=== PATIENT | female | born 1985 | race Caucasian/White ===

== ENCOUNTER 2016-11-19 07:15 | Inpatient (IN) | payer MEDICARE, MEDICAID ==
[2016-11-19] MEDS ORDERED: Gabapentin 300 MG Cap PO ONE (08:00)
[2016-11-19] MEDS ORDERED: Scopolamine 1.5 MG Transdermal Patch TOP SCH (08:00)
[2016-11-19] MEDS ORDERED: Celecoxib 100 MG Cap PO ONE (08:00)
[2016-11-19] MEDS ORDERED: Dextrose 5%-Lactated Ringers 1,000 ML IV SCH (08:00)
[2016-11-19] MEDS ORDERED: cefOXitin 2 GM Vial ONE (08:17)
[2016-11-19] MEDS ORDERED: Propofol 200 MG/20 ML SDV ONE (08:25)
[2016-11-19] MEDS ORDERED: Neostigmine Methylsulfate 1 MG/ML 5 ML Syringe ONE (08:25)
[2016-11-19] MEDS ORDERED: Lactated Ringers 1,000 ML ONE (08:25)
[2016-11-19] MEDS ORDERED: Ondansetron 4 MG/2 ML SDV ONE (08:25)
[2016-11-19] MEDS ORDERED: fentaNYL 250 MCG/5 ML SDV ONE (08:25)
[2016-11-19] MEDS ORDERED: Scopolamine 1.5 MG Transdermal Patch ONE (08:25)
[2016-11-19] MEDS ORDERED: Rocuronium 50 MG/5 ML Vial ONE (08:25)
[2016-11-19] MEDS ORDERED: Succinylcholine/Normal Saline 200 MG/10 ML Syringe ONE (08:25)
[2016-11-19] MEDS ORDERED: Dexamethasone 4 MG/ML SDV ONE (08:25)
[2016-11-19] MEDS ORDERED: HYDROmorphone/Normal Saline 15 MG/30 ML PCA IV PRN (08:53)
[2016-11-19] MEDS ORDERED: Naloxone 0.4 MG/ML SDV IVPUSH PRN (08:53)
[2016-11-19] MEDS ORDERED: Naloxone 0.4 MG/ML SDV IV PRN (08:57)
[2016-11-19] MEDS ORDERED: Lidocaine 2% 100 MG/5 ML Syringe IVPUSH ONE (10:00)
[2016-11-19] MEDS ORDERED: Ropivacaine 60 ML, Dexamethasone 8 MG, EPINEPHrine 0.4 MG, Sodium Chloride 0.9% 17.6 ML INJECT SCH ×4 (10:00)
[2016-11-19] MEDS ORDERED: Ketamine 500 MG/5 ML MDV IV SCH (10:00)
[2016-11-19] MEDS: cefOXitin 2 GM in Sodium Chloride 0.9% 50 ML IV ONE ×2 (12:26→15:38)
--- NOTE | 2016-11-19 13:29 | US ---
Guide Intraoperative HISTORY: TAP block COMPARISON: None FINDINGS: Some guidance was utilized for TAP unremarkable block.
[2016-11-19] MEDS: Lidocaine 0.4%/D5W 2 GM/500 ML BAG IV SCH ×2 (15:38→16:31)
[2016-11-19] MEDS ORDERED: Labetalol 20 MG/4 ML Syringe IVPUSH PRN (15:51)
[2016-11-19] MEDS ORDERED: SCOPOLAMINE PATCH ASK TOP SCH (15:51)
[2016-11-19] MEDS ORDERED: hydrOXYzine HCl 50 MG/ML SDV IM PRN (15:51)
[2016-11-19] MEDS: MVI, Adult with Vitamin K 10 ML, Thiamine 200 MG, Chromium/Copper/Mang/Selen/Zn 1 ML in... IV SCH ×4 (16:30)
[2016-11-19] MEDS: Heparin Sodium 5,000 Units/ML Vial SUBCUT SCH (18:00)
[2016-11-19] MEDS: Pantoprazole 40 MG Vial IVPUSH SCH (18:01)
[2016-11-19] MEDS: cefOXitin 2 GM in Sodium Chloride 0.9% 50 ML IV SCH (20:14)
[2016-11-19] MEDS: Gabapentin 250 MG/5 ML Solution ML 470 ML Bottle PO SCH (20:14)
[2016-11-19] MEDS: Ondansetron 4 MG/2 ML SDV IVPUSH PRN (22:13)
[2016-11-19] MEDS: Dextrose 5%-Lactated Ringers 1,000 ML IV SCH (22:14)
[2016-11-20] MEDS: cefOXitin 2 GM in Sodium Chloride 0.9% 50 ML IV SCH ×4 (02:21→21:17)
[2016-11-20] MEDS ORDERED: Iohexol 647 MG/ML 50 ML SDV PO SCH (03:15)
[2016-11-20] MEDS: Lidocaine 0.4%/D5W 2 GM/500 ML BAG IV SCH ×2 (03:26→06:01)
[2016-11-20] MEDS: Ondansetron 4 MG/2 ML SDV IVPUSH PRN ×2 (04:09→10:29)
[2016-11-20] MEDS: Heparin Sodium 5,000 Units/ML Vial SUBCUT SCH ×2 (06:01→17:02)
[2016-11-20] MEDS: Gabapentin 250 MG/5 ML Solution ML 470 ML Bottle PO SCH ×3 (09:21→21:22)
[2016-11-20] MEDS: Celecoxib 100 MG Cap PO SCH (09:22)
[2016-11-20] MEDS: SCOPOLAMINE PATCH CHECK TOP SCH (09:22)
[2016-11-20] MEDS: Pantoprazole 40 MG Vial IVPUSH SCH (17:02)
[2016-11-20] MEDS: MVI, Adult with Vitamin K 10 ML, Thiamine 200 MG, Chromium/Copper/Mang/Selen/Zn 1 ML in... IV SCH ×4 (17:03)
[2016-11-21] MEDS: cefOXitin 2 GM in Sodium Chloride 0.9% 50 ML IV SCH (01:42)
[2016-11-21] MEDS: Dextrose 5%-Lactated Ringers 1,000 ML IV SCH (04:59)
[2016-11-21] MEDS: Heparin Sodium 5,000 Units/ML Vial SUBCUT SCH ×2 (05:01→18:37)
[2016-11-21] MEDS ORDERED: Sodium Chloride 0.9% 10 ML Syringe IV PRN (07:35)
[2016-11-21] MEDS ORDERED: Acetaminophen 160 MG Tab,Disintegrating PO PRN (07:35)
[2016-11-21] MEDS ORDERED: Acetaminophen Soln 650 MG/20.3 ML UD Cup PO PRN (07:35)
[2016-11-21] MEDS: HYDROmorphone 2 MG Tab PO PRN ×3 (08:06→20:37)
[2016-11-21] MEDS: Gabapentin 250 MG/5 ML Solution ML 470 ML Bottle PO SCH ×3 (08:10→20:37)
[2016-11-21] MEDS: Celecoxib 100 MG Cap PO SCH (08:10)
[2016-11-21] MEDS: SCOPOLAMINE PATCH CHECK TOP SCH (08:18)
[2016-11-21] MEDS ORDERED: Cyanocobalamin (Vitamin B12) 1,000 MCG/ML SDV IM ONE (09:00)
--- NOTE | 2016-11-21 21:09 | PN ---
DATE OF SERVICE: 11/21/2016 The patient has been afebrile with stable vital signs. Oral intake is around a liter and we will switch over to oral pain medication today. may shower. She may be ready for discharge home tomorrow. Sammy Brown MD /[id number]
[2016-11-22] MEDS: Heparin Sodium 5,000 Units/ML Vial SUBCUT SCH (05:25)
[2016-11-22] MEDS: HYDROmorphone 2 MG Tab PO PRN ×2 (05:27→10:24)
[2016-11-22 07:16] VITALS: BP 122/62
[2016-11-22] MEDS: Celecoxib 100 MG Cap PO SCH (10:24)
[2016-11-22] MEDS: Gabapentin 250 MG/5 ML Solution ML 470 ML Bottle PO SCH (10:24)
--- NOTE | 2016-11-22 11:02 | PN ---
DATE OF SERVICE: 11/20/2016 The patient is postop day #1 from a laparoscopic Raul-en-Y gastric bypass. Postoperatively, no major problems were noted. Her upper GI x-ray looked good, and we will begin a step-1 diet today. We will restart her Wellbutrin and otherwise start a step-1 diet. The lidocaine infusion is scheduled to go off at 2 p.m. We will leave the [employer] going for today to get some idea how much narcotics this fast track regimen is likely going to need. Sammy Brown MD /[id number]
--- NOTE | 2016-11-22 11:36 | CR ---
Limited upper GI The patient is status post Raul-en-Y gastric bypass. There are left upper quadrant drains in place. There is no extravasation of contrast. The gastric pouch empties readily into a nondilated Raul limb . No complications are evident. Impression: 1. Status post Raul-en-Y gastric bypass without evidence for complication.
[2016-11-22] MEDS ORDERED: Ondansetron 4 MG Tab.DIS PO ONE (11:45)
[2016-11-22] MEDS ORDERED: Magnesium Hydroxide 400 MG/5 ML Susp 30 ML Cup PO ONE (12:22)
--- NOTE | 2016-11-23 02:36 | DISCH ---
ADMISSION DIAGNOSES: Morbid obesity, anxiety, asthma, depression, fatigue, GERD, and heavy menstrual periods. DISCHARGE DIAGNOSES: Laparoscopic Raul-en-Y gastric bypass surgery, liver biopsy, repair of diaphragmatic hernia, and excision of mediastinal lipoma for morbid obesity, hepatomegaly, diaphragmatic hernia, and mediastinal lipoma. DATE OF SURGERY: 11/19/2016. HISTORY: Chantelle Bennett is a 31-year-old female with longstanding history of morbid obesity and increasingly comorbidities. After preoperative evaluation and discussion of possible risks and possible complications, she wished to proceed with surgical procedure. HOSPITAL COURSE: Chantelle had her surgery on 11/19/2016. She had no operative complications. On postop day #1, her upper GI was normal and she was started on a step 1 gastric bypass diet. On postop day #2, she was started on step 2 gastric bypass diet with no cereal. On postop day #3, she was able to be discharged to home. She received dietary instruction. She had a B12 1000 mcg IM injection. Her activity was good. Her oral intake was adequate. Pain was controlled and vital signs were stable. PHYSICAL EXAMINATION: GENERAL: Chantelle Bennett is a 31-year-old female. Height is 5 feet 5.5 inches, weight is 307 pounds 12.8 ounces. VITAL SIGNS: TPR is 99.5, 79, 16, blood pressure 122/62. HEENT: Negative. NECK: Supple. HEART: Regular rate and rhythm. LUNGS: Clear. ABDOMEN: 4x4s over FADI drain sites and incisions look good. Abdominal binder is on. EXTREMITIES: Without peripheral edema. DISPOSITION: Discharged to home. CONDITION: Stable and improving. FOLLOW UP APPOINTMENT: Jonna Wesley PA-C on 12/01/2016 at 9:30 a.m. HOME MEDICATIONS: 1. Zofran ODT 4 mg every 4 hours p.r.n. nausea, #30. 2. Tylenol Shaw Meltaways 640 mg oral q.6 hours p.r.n. pain #100. 3. Celebrex 200 mg oral daily, take 100 mg two at a time. 4. Dilaudid 2 mg 1 to 2 every 4 hours p.r.n. pain #50. 5. Milk of magnesium 30 mL oral daily as needed, sent to home with patient. 6. Wellbutrin 75 mg oral twice daily, #60. 7. She is to resume taking multivitamin children's chewable with iron one tablet twice a day, vitamin B12 1000 mcg sublingual once daily, Imitrex 50 mg oral p.r.n. migraine headache. DISCHARGE INSTRUCTIONS: Diet after discharge drink 8 to 10 glasses of water a day. Diet, step-2 gastric bypass diet with no cereal. Activity after discharge; no lifting greater than 10 pounds for 2 weeks, walk 8 times daily inside your home. Driving after discharge, do not drive on pain medication. Shower bathing, may shower. Notify provider if any fever, increased pain, swelling, redness, drainage, nausea, or vomiting. Wound incision care after discharge; keep site clean and dry, wear abdominal binder for 2 weeks and then as tolerated. SPECIAL INSTRUCTION: Use incentive spirometer 10 times every hour while awake for 2 weeks.
--- NOTE | 2016-11-24 10:32 | OR ---
DATE OF PROCEDURE: 11/19/2016 PREOPERATIVE DIAGNOSIS: Morbid obesity. POSTOPERATIVE DIAGNOSES: 1. Morbid obesity. 2. Marked hepatomegaly. 3. Paraesophageal diaphragmatic hernia. 4. Mediastinal lipoma. OPERATIVE PROCEDURE: 1. Bilateral subcostal transversus abdominis plane blocks (12912). 2. Diagnostic laparoscopy with:. a. Laparoscopic Raul-en-Y gastric bypass (14080). b. Chris-Cut needle liver biopsy (26510). c. Repair of paraesophageal diaphragmatic hernia (58164). d. Excision of mediastinal lipoma (01104). ANESTHESIA: General. INDICATION FOR PROCEDURE: This is a 31-year-old female presenting with longstanding morbid obesity and increasingly significant comorbidities. After preoperative evaluation and discussion, she wished to proceed with a gastric bypass procedure. Potential risks of the procedure including bleeding, infection, injury to underlying viscera, leaks from various GI tract closures, problems with bowel obstruction over time were all reviewed, and the patient wishes to proceed. DETAILS OF PROCEDURE: The patient was taken to the operating room and placed in a supine position. After general endotracheal anesthesia was induced, she was converted to the lithotomy position. Initially, using ultrasound guidance bilateral TAP blocks were placed. Once these were completed, the Mar catheter was inserted, orogastric tube placed, and the abdomen prepped and draped. At 15 cm inferior, 5 cm left of xiphoid process, transverse incision was made and peritoneal cavity entered under direct vision with Optiview trocar inflated to 15 mmHg pressure with CO2. Laparoscope was then reinserted. No underlying trocar insertion site injuries were seen. Following this, 5 additional trocars were placed across the upper mid abdomen and general exploration was undertaken. The patient noted to have marked hepatomegaly with liver volume being roughly 2 to 3 times normal and liver grossly fatty infiltrated. Chris-Cut needle biopsy obtained from left lobe of the liver. Minimal bleeding from the biopsy sites, which was controlled with electrocautery. At this point, the omentum was divided in midline up to the level of the transverse colon. This allowed identification of small bowel. The small bowel was then traced out 200 cm distal to that point, and was divided transversely with a DANIELLA stapler. Small bowel was then traced out an additional 200 cm where the [id number] enteroenterostomy was accomplished with internal firing of the Endo-DANIELLA 60 mm stapler, opening was then closed transversely with the same stapler and angles anastomosed, and mesenteric defect approximated with some 0 Ethibond stitch along with fibrin sealant, divided Raul limb was then from the mesentery for a few centimeters which allowed an antecolic position of the Raul limb up to the level of the gastroesophageal junction without tension. Attention was then taken to the area of the formation of the gastric pouch. Upon elevation of the liver, the patient was noted to have moderate diaphragmatic hernia. This had a major component of the paraesophageal type hernia with prolapse of perigastric fat and fundus along with a little bit of omentum in a plane anterior course to the course of the esophagus. This was reduced and the peritoneum overlying was incised and reflected downward. An anterior repair of the diaphragmatic hernia was then accomplished with 0 Ethibond sutures reinforced with PTFE pledgets. During the course of this dissection, the patient was noted to have a mediastinal lipoma which was dissected out and sent as a separate specimen as well. Gastrointestinal catheter was inflated 15 mL and pulled up snugly against EG junction, gastric wall over the apex balloon was then marked with electrocautery, and balloon catheter deflated and pulled up from the esophagus. The lesser omental tissue adjacent to gastric cardia was then incised allowing the dissection behind the stomach at that plane. The pouch was initially started with a transverse firing of the DANIELLA stapler at the level cauterized marked on the gastric cardia. Pouch was then completed with 2 additional firings of the DANIELLA staplers up to and through the angle of His. Upon completion of the pouch, both staple lines were noted to be intact. The anvil of a 21 mm EEA stapler was attached to Kinney sump type tube, was brought down through the mouth and taken out through a small opening of the gastric pouch, allowing the anvil likewise to be pulled down within the gastric pouch and divided, Raul limb was then opened and main body EEA stapler passed several centimeters in the lumen of the small bowel, brought up the anvil and united with it, thus creating the gastrojejunostomy. Upon removal of the stapler, double donuts of mucosa were noted within it. The small bowel was closed off with a vascular staple line. Gastrojejunostomy was reinforced with some 3-0 Vicryl seromuscular stitch along with fibrin sealant. Leak test was accomplished with injection of 120 mL of air in the gastric pouch while submerged within cefoxitin-containing saline solution. No leaks were identified. Two Anoop-Lara drains were then placed gastrojejunostomy taken out through subcostal trocar sites with no further problems noted. Trocars removed. The peritoneal cavity deflated. Incisions were closed with 4-0 Vicryl skin stitch and drains were affixed with some 4-0 Vicryl stitch as well. The dressing was applied. The patient was taken to the recovery room in satisfactory condition. Sammy Brown MD /[id number]
== END 2016-11-22 13:00 | disposition home or self-care (01) | DRG 621 ==
LOC: EDSTATUS 07:15 → JP.SDSSCHI 07:45 → JP.SDS 07:45 → JP.2SS 15:18
PROVIDERS: ADMIT Surgery; ATTEND Surgery
PROC: 0DB80ZZ Excision of Small Intestine, Open Approach (ICD-10-PCS; principal; 2016-11-19)
PROC: 0D164ZA Bypass Stomach to Jejunum, Percutaneous Endoscopic Approach (ICD-10-PCS; principal; 2016-11-19)
PROC: 0DB63ZZ Excision of Stomach, Percutaneous Approach (ICD-10-PCS; principal; 2016-11-19)
PROC: 0BQS4ZZ (ICD-10-PCS; 2016-11-19)
PROC: 0BQR4ZZ (ICD-10-PCS; 2016-11-19)
PROC: 0FB24ZX Excision of Left Lobe Liver, Percutaneous Endoscopic Approach, Diagnostic (ICD-10-PCS; 2016-11-19)
PROC: 0WBC4ZX Excision of Mediastinum, Percutaneous Endoscopic Approach, Diagnostic (ICD-10-PCS; 2016-11-19)
DX: E66.01 Morbid (severe) obesity due to excess calories (principal); Z68.43 Body mass index [BMI] 50.0-59.9, adult; K44.9 Diaphragmatic hernia without obstruction or gangrene; D17.4 Benign lipomatous neoplasm of intrathoracic organs; F41.9 Anxiety disorder, unspecified; F32.9 Major depressive disorder, single episode, unspecified; K21.9 Gastro-esophageal reflux disease without esophagitis; Z87.891 Personal history of nicotine dependence; Z87.09 Personal history of other diseases of the respiratory system; G43.909 Migraine, unspecified, not intractable, without status migrainosus; N92.0 Excessive and frequent menstruation with regular cycle; R16.0 Hepatomegaly, not elsewhere classified; K76.0 Fatty (change of) liver, not elsewhere classified
CPT/HCPCS: 36415; 74240; 74240-26; 76998; 76998-26; 86850; 86900; 86901; 88304; 88307; 94762; A9270-GY; C9113; J0171; J0694; J1100; J1170; J1644; J2001; J2405; J2704; J2795; J3010; J3411; J3420; J7030; J7040; J7042; J7050; J7120; Q9967

== ENCOUNTER 2016-12-12 09:52 | Emergency (ER) | payer MEDICARE, MEDICAID ==
[2016-12-12 10:19] VITALS: BP 125/86
[2016-12-12] MEDS ORDERED: Ketorolac 30 MG/ML SDV IVPUSH ONE (10:44)
[2016-12-12] MEDS ORDERED: HYDROmorphone 0.5 MG/0.5 ML Syringe IVPUSH ONE (11:58)
[2016-12-12] MEDS ORDERED: Sodium Chloride 0.9% 1,000 ML IV SCH (12:00)
[2016-12-12] MEDS ORDERED: Ondansetron 4 MG/2 ML SDV ONE (12:09)
[2016-12-12] MEDS ORDERED: Ondansetron 4 MG/2 ML SDV IVPUSH ONE (12:16)
--- NOTE | 2016-12-12 12:17 | EDM.PDOC ---
ED HPI RENAL/ - General Chief Complaint: Genitourinary Problem Stated Complaint: KIDNEY STONES Time Seen by Provider: 12/12/16 10:30 Source: Reports: Patient, Family History Limitations: Reports: No limitations - History of Present Illness INITIAL COMMENTS - FREE TEXT/NARRATIVE: 31-year-old female with a previous history of renal stones woke at 3 AM with a sudden right flank pain. It is very similar to pain she's had in the past. Radiates around to the right groin. Nausea with dry heaves, no fever or chills. Severity: moderate Associated Symptoms: Reports: frequency, urgency. Denies: dysuria - Related Data Allergies/ADRs: Allergies Allergy/AdvReac Type Severity Reaction Status Date / Time No Known Allergies Allergy Verified 12/12/16 10:23 Home Meds: Home Meds SUMAtriptan [Imitrex] 50 mg PO ASDIRECTED PRN 12/05/14 [History] Cyanocobalamin (Vitamin B-12) [Vitamin B-12] 1,000 mcg SL DAILY 11/16/16 [ History] Pediatric Multivit #17/Iron [Children's Chewables] 1 tab PO BID 11/16/16 [ History] Acetaminophen [Tylenol Jr. Meltaways] 640 mg PO Q6H PRN #100 tab.dis 11/22/16 [ Rx] HYDROmorphone [Dilaudid] 2 - 4 mg PO Q4H PRN #50 tablet 11/22/16 [Rx] Magnesium Hydroxide [Milk of Magnesia] 30 ml PO DAILY PRN #2 ml 11/22/16 [Rx] Ondansetron [Zofran ODT] 4 mg PO Q4HR PRN #30 tab.dis 11/22/16 [Rx] buPROPion [Wellbutrin] 75 mg PO BID #60 tablet 11/22/16 [Rx] Past Medical History HEENT History: Reports: Otitis media Cardiovascular History: Reports: Other (see below) Other Cardiovascular History: Palpatations Gastrointestinal History: Reports: Irritable bowel syndrome Genitourinary History: Reports: Renal calculus PELT SHEARER History: Reports: Polycystic Ovaries, Musculoskeletal History: Reports: Other (see below) Other Musculoskeletal History: Sciatica nerve pain. Plantar fasciitias Neurological History: Reports: Concussion, Migraines Psychiatric History: Reports: Anxiety, Depression Hematologic History: Reports: Iron deficiency - Infectious Disease History Infectious Disease History: Reports: Chicken pox - Past Surgical History GI Surgical History: Reports: Bariatric procedure Other GI Surgeries/Procedures: rny november 20 Female Surgical History: Reports: Lithotripsy/ESWL Social & Family History - Family History Family Medical History: Unobtainable HEENT: Reports: None Cardiac: Reports: Hypertension Respiratory: Reports: Asthma, COPD, Sleep apnea GI: Reports: GERD, Irritable bowel syndrome - Tobacco Use Smoking Status *Q: Never Smoker Month Tobacco Last Used: 6 Second Hand Smoke Exposure: No - Caffeine Use Caffeine Use: Reports: Coffee, Soda, Tea - Alcohol Use Days Per Week of Alcohol Use: 1 Number of Drinks Per Day: 0 Total Drinks Per Week: 0 - Recreational Drug Use Recreational Drug Use: No ED ROS GENERAL - Review of Systems Review Of Systems: See Below Constitutional: Denies: fever, chills HEENT: Reports: No symptoms Respiratory: Denies: Shortness of Breath Cardiovascular: Denies: Chest pain GI/Abdominal: Reports: Nausea. Denies: Abdominal pain Skin: Reports: no symptoms ED EXAM, RENAL/ - Physical Exam Exam: See Below Exam Limited By: No limitations General Appearance: alert, moderate distress Respiratory/Chest: no respiratory distress, lungs clear GI/Abdominal: soft, non tender Neurological: alert, oriented Psychiatric: anxious Course - Vital Signs Last Recorded V/S: Last Vital Signs Temp 97.2 F 12/12/16 10:33 Pulse 94 12/12/16 10:33 Resp 15 12/12/16 10:33 BP 125/86 12/12/16 10:33 Pulse Ox 97 12/12/16 10:33 - Orders/Labs/Meds Orders: Active Orders 24 hr Category Date Time Status Abdomen Pelvis wo Cont [CT] Stat Exams 12/12/16 10:44 Taken Sodium Chloride 0.9% [Normal Saline] 1,000 ml Med 12/12/16 12:00 Active IV ASDIRECTED Medication Orders Sodium Chloride (Normal Saline) 1,000 mls @ 500 mls/hr IV ASDIRECTED CRISTAL Last Admin: 12/12/16 12:18 Dose: 500 mls/hr Labs: Laboratory Tests 12/12/16 12/12/16 Range/Units 11:32 11:32 WBC 3.7 L (4.5-11.0) K/uL RBC 4.83 (3.30-5.50) M/uL Hgb 12.0 (12.0-15.0) g/dL Hct 37.6 (36.0-48.0) % MCV 78 L (80-98) fL MCH 25 L (27-31) pg MCHC 32 (32-36) % Plt Count 302 (150-400) K/uL Neut % (Auto) 63 (36-66) % Lymph % (Auto) 25 (24-44) % Creek % (Auto) 9 H (2-6) % Eos % (Auto) 2 (2-4) % Baso % (Auto) 1 (0-1) % Sodium 144 (140-148) mmol/L Potassium 3.5 L (3.6-5.2) mmol/L Chloride 107 (100-108) mmol/L Carbon Dioxide 25 (21-32) mmol/L Anion Gap 15.5 H (5.0-14.0) mmol/L BUN 9 (7-18) mg/dL Creatinine 0.9 (0.6-1.0) mg/dL Est Cr Clr Drug Dosing 85.56 mL/min Estimated GFR (MDRD) > 60 (>60) Glucose 104 (74-106) mg/dL Calcium 8.4 L (8.5-10.1) mg/dL Meds: Medications Generic Name Dose Route Start Last Admin Trade Name Freq PRN Reason Stop Dose Admin Sodium Chloride 1,000 mls @ 500 mls/hr 12/12/16 12:00 12/12/16 12:18 Normal Saline IV 500 mls/hr ASDIRECTED CRISTAL Administration Discontinued Medications Generic Name Dose Route Start Last Admin Trade Name Freq PRN Reason Stop Dose Admin Hydromorphone HCl 0.5 mg 12/12/16 11:58 12/12/16 12:17 Dilaudid IVPUSH 12/12/16 11:59 0.5 mg ONETIME ONE Administration Ketorolac Tromethamine 30 mg 12/12/16 10:44 12/12/16 10:48 Toradol IVPUSH 12/12/16 10:45 30 mg ONETIME ONE Administration Ondansetron HCl Confirm 12/12/16 12:09 Zofran Administered 12/12/16 12:10 Dose 4 mg .ROUTE .STK-MED ONE Ondansetron HCl 4 mg 03/26/17 12:16 12/12/16 12:17 Zofran IVPUSH 12/12/16 12:17 4 mg ONETIME ONE Administration - Re-Assessments/Exams Free Text/Narrative Re-Assessment/Exam: 12/12/16 12:15 Patient was given 30 mg of Toradol IV and a CT was obtained of the abdomen. She has a 7 mm proximal stone with moderate hydronephrosis on the right side. Her pain was controlled initially with Toradol but began to worsen, a similar episode several years ago required lithotripsy and inpatient treatment. She is afraid to try to treat this as an outpatient. She was accepted kindly by the hospitalist service in [place] where she had her previous treatment so will go by private car. 12/12/16 12:16 CBC and BMP were obtained prior to discharge and were unremarkable. Departure - Departure Time of Disposition: 13:19 Disposition: DC/Tfer to Other 70 Condition: fair Clinical Impression: Kidney stone, Colic, ureteral Instructions: Kidney Stones, [id number] Referrals: Juliet Keen NP [Primary Care Provider] - Forms: ED Department Discharge Care Plan Goals: Go directly to [facility] for admission and neurologic consultation and care. - My Orders Last 24 Hours: My Active Orders 12/12/16 10:44 Abdomen Pelvis wo Cont [CT] Stat 12/12/16 12:00 Sodium Chloride 0.9% [Normal Saline] 1,000 ml IV ASDIRECTED - Assessment/Plan Last 24 Hours: My Active Orders 12/12/16 10:44 Abdomen Pelvis wo Cont [CT] Stat 12/12/16 12:00 Sodium Chloride 0.9% [Normal Saline] 1,000 ml IV ASDIRECTED
== END 2016-12-12 14:02 | disposition other institution (70) ==
LOC: JP.ED 09:52
DX: N20.0 Calculus of kidney (principal); N23 Unspecified renal colic; F41.9 Anxiety disorder, unspecified; F32.9 Major depressive disorder, single episode, unspecified; Z79.899 Other long term (current) drug therapy; Z98.84 Bariatric surgery status
CPT/HCPCS: 36415; 74176; 80048; 85025; 96361; 96374; 96375; 99285; J1170; J1885; J2405; J7040; 99284

== ENCOUNTER 2017-06-14 01:12 | Inpatient (IN) | payer MEDICARE, MEDICAID ==
[2017-06-14] MEDS ORDERED: Ondansetron 4 MG/2 ML SDV IVPUSH ONE (01:48)
[2017-06-14] MEDS ORDERED: Sodium Chloride 0.9% 10 ML Syringe FLUSH PRN (01:48)
[2017-06-14] MEDS ORDERED: HYDROmorphone 1 MG/ML Syringe IVPUSH ONE (01:48)
--- NOTE | 2017-06-14 01:54 | EDM.PDOC ---
ED HPI GENERAL MEDICAL PROBLEM - General Chief Complaint: Abdominal Pain Stated Complaint: ABD PAIN Time Seen by Provider: 06/14/17 01:43 Source of Information: Reports: Patient, RN Notes Reviewed History Limitations: Reports: No Limitations - History of Present Illness INITIAL COMMENTS - FREE TEXT/NARRATIVE: 32-year-old female presents emergency department day complaint of epigastric abdominal pain, she is status post gastric bypass Raul-en-Y approximately 6 months she states was she was eating dinner started having abdominal pain progressively got worse feels like something is stuck in her esophagus even with water causes intense pain she is nauseated with this pain no problems with bowel movements no fevers no shortness of breath or chest pain, has not tried anything for the pain epigastric Pain Score (Numeric/FACES): 8 - Related Data Allergies Allergy/AdvReac Type Severity Reaction Status Date / Time No Known Allergies Allergy Verified 12/12/16 10:23 Home Meds: Home Meds SUMAtriptan [Imitrex] 50 mg PO ASDIRECTED PRN 12/05/14 [History] Cyanocobalamin (Vitamin B-12) [Vitamin B-12] 1,000 mcg SL DAILY 11/16/16 [ History] Pediatric Multivit #17/Iron [Children's Chewables] 1 tab PO BID 11/16/16 [ History] Acetaminophen [Tylenol Jr. 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 Plantar fasciitias Neurological History: Reports: Concussion, Migraines Psychiatric History: Reports: Anxiety, Depression Endocrine/Metabolic History: Reports: Obesity/BMI 30+ Hematologic History: Reports: Iron Deficiency - Infectious Disease History Infectious Disease History: Reports: Chicken Pox - Past Surgical History HEENT Surgical History: Reports: None Cardiovascular Surgical History: Reports: None Respiratory Surgical History: Reports: None GI Surgical History: Reports: Bariatric Procedure, Hernia, Inguinal Neurological Surgical History: Reports: None Social & Family History - Family History Family Medical History: Unobtainable HEENT: Reports: None Cardiac: Reports: Hypertension Respiratory: Reports: Asthma, COPD, Sleep Apnea GI: Reports: GERD, Irritable Bowel Syndrome - Tobacco Use Smoking Status *Q: Current Every Day Smoker Years of Tobacco use: 15 Packs/Tins Daily: 0.2 Month Tobacco Last Used: 6 Second Hand Smoke Exposure: No - Caffeine Use Caffeine Use: Reports: Coffee - Alcohol Use Days Per Week of Alcohol Use: 1 Number of Drinks Per Day: 0 Total Drinks Per Week: 0 - Recreational Drug Use Recreational Drug Use: No ED ROS GENERAL - Review of Systems Review Of Systems: See Below Constitutional: Denies: Fever, Chills HEENT: Reports: No Symptoms Respiratory: Reports: No Symptoms Cardiovascular: Reports: No Symptoms GI/Abdominal: Reports: Abdominal Pain, Nausea, Vomiting. Denies: Constipation, Diarrhea : Reports: No Symptoms Musculoskeletal: Reports: No Symptoms Skin: Reports: No Symptoms Neurological: Reports: No Symptoms ED EXAM, GI/ABD - Physical Exam Exam: See Below Text/Narrative:: General: Female in moderate discomfort secondary to pain, alert and oriented x3 HEENT: head is atraumatic normocephalic, eyes pupils equal round reactive to light, sclera clear no conjunctivitis appreciated. Ears tympanic membranes clear and goode landmarks and light reflex are present bilaterally canals are clear. Nose no septal deviation, nares are clear, no blood present. Mouth mucosa is moist and pink no erythema or exudate noted in soft palate, tongue is midline uvula is midline, dentition is poor. Neck: Supple no thyromegaly no tracheal deviation. Nodes: Cervical nodes subclavicular nodes nontender no palpable lymphadenopathy noted. Lungs: clear to auscultation bilaterally with symmetrical respirations, no adventitious noise appreciated. CV: Regular rate and rhythm S1 and S2 appreciated no murmurs rubs or gallops noted. Abdomen: Soft, tender to palpation right upper quadrant epigastric region, no palpable masses or organomegaly appreciated, no distention no guarding bowel sounds are present, . Neuro: Cranial nerves II through XII grossly intact Skin: Warm and dry, intact Extremities: No lower extremity edema appreciated, Course - Vital Signs Last Recorded V/S: Last Vital Signs Temp 97.1 F 06/14/17 01:37 Pulse 79 06/14/17 01:37 Resp 18 06/14/17 01:37 BP 113/68 06/14/17 01:37 Pulse Ox 97 06/14/17 01:37 - Orders/Labs/Meds Orders: Active Orders 24 hr Category Date Time Status Peripheral IV Care [RC] . DIRECTED Care 06/14/17 01:49 Active Abdomen Pelvis w Cont [CT] Urgent Exams 06/14/17 01:48 Ordered Lactated Ringers [Ringers, Lactated] 1,000 ml Med 06/14/17 02:00 Active IV ASDIRECTED Sodium Chloride 0.9% [Normal Saline] 100 ml Med 06/14/17 02:00 Active IV ASDIRECTED Sodium Chloride 0.9% [Saline Flush] Med 06/14/17 01:48 Active 10 ml FLUSH ASDIRECTED PRN ED Antiemetic Medication Reflex [OM.PC] Click to Edit Oth 06/14/17 01:48 Ordered ED Pain Medications Reflex [OM.PC] Click to Edit Oth 06/14/17 01:48 Ordered Peripheral IV Insertion Adult [OM.PC] Urgent Oth 06/14/17 01:48 Ordered Medication Orders Lactated Ringer's (Ringers, Lactated) 1,000 mls @ 500 mls/hr IV ASDIRECTED CRISTAL Last Admin: 06/14/17 02:02 Dose: 500 mls/hr Sodium Chloride (Normal Saline) 100 mls @ 3 mls/sec IV ASDIRECTED CRISTAL Last Admin: 06/14/17 02:58 Dose: 3 mls/sec Sodium Chloride (Saline Flush) 10 ml FLUSH ASDIRECTED PRN PRN Reason: Keep Vein Open Labs: Laboratory Tests 06/14/17 06/14/17 06/14/17 Range/Units 01:48 01:48 01:48 WBC 6.9 (4.5-11.0) K/uL RBC 4.44 (3.30-5.50) M/uL Hgb 13.1 (12.0-15.0) g/dL Hct 37.3 (36.0-48.0) % MCV 84 (80-98) fL MCH 30 (27-31) pg MCHC 35 (32-36) % Plt Count 283 (150-400) K/uL Neut % (Auto) 56 (36-66) % Lymph % (Auto) 31 (24-44) % [place] % (Auto) 6 (2-6) % Eos % (Auto) 6 H (2-4) % Baso % (Auto) 1 (0-1) % Sodium 140 (140-148) mmol/L Potassium 4.5 (3.6-5.2) mmol/L Chloride 107 (100-108) mmol/L Carbon Dioxide 25 (21-32) mmol/L Anion Gap 7.9 (5.0-14.0) mmol/L BUN 13 (7-18) mg/dL Creatinine 0.5 L (0.6-1.0) mg/dL Est Cr Clr Drug Dosing 152.61 mL/min Estimated GFR (MDRD) > 60 (>60) Glucose 89 (74-106) mg/dL Lactic Acid 1.1 (0.4-2.0) mmol/L Calcium 8.3 L (8.5-10.1) mg/dL Total Bilirubin 1.1 H (0.2-1.0) mg/dL AST 40 H (15-37) U/L ALT 26 (12-78) U/L Alkaline Phosphatase 106 (46-116) U/L Troponin I < 0.017 (0.000-0.056) ng/mL Total Protein 7.3 (6.4-8.2) g/dL Albumin 3.7 (3.4-5.0) g/dL Globulin 3.6 H (2.3-3.5) g/dL Albumin/Globulin Ratio 1.0 L (1.2-2.2) Lipase 146 (73-393) U/L Urine Color Urine Appearance Urine pH (4.5-8.0) Ur Specific [place] (1.008-1.030) Urine Protein (NEGATIVE) mg/dL Urine Glucose (UA) (NEGATIVE) mg/dL Urine Ketones (NEGATIVE) mg/dL Urine Occult Blood (NEGATIVE) Urine Nitrite (NEGATIVE) Urine Bilirubin (NEGATIVE) Urine Urobilinogen (NORMAL) mg/dL Ur Leukocyte Esterase (NEGATIVE) Urine RBC (0-5) Urine WBC (0-5) Ur Epithelial Cells Amorphous Sediment Urine Bacteria Urine Mucus Urine Other 09/26/17 Range/Units 03:38 WBC (4.5-11.0) K/uL RBC (3.30-5.50) M/uL Hgb (12.0-15.0) g/dL Hct (36.0-48.0) % MCV (80-98) fL MCH (27-31) pg MCHC (32-36) % Plt Count (150-400) K/uL Neut % (Auto) (36-66) % Lymph % (Auto) (24-44) % [place] % (Auto) (2-6) % Eos % (Auto) (2-4) % Baso % (Auto) (0-1) % Sodium (140-148) mmol/L Potassium (3.6-5.2) mmol/L Chloride (100-108) mmol/L Carbon Dioxide (21-32) mmol/L Anion Gap (5.0-14.0) mmol/L BUN (7-18) mg/dL Creatinine (0.6-1.0) mg/dL Est Cr Clr Drug Dosing mL/min Estimated GFR (MDRD) (>60) Glucose (74-106) mg/dL Lactic Acid (0.4-2.0) mmol/L Calcium (8.5-10.1) mg/dL Total Bilirubin (0.2-1.0) mg/dL AST (15-37) U/L ALT (12-78) U/L Alkaline Phosphatase (46-116) U/L Troponin I (0.000-0.056) ng/mL Total Protein (6.4-8.2) g/dL Albumin (3.4-5.0) g/dL Globulin (2.3-3.5) g/dL Albumin/Globulin Ratio (1.2-2.2) Lipase (73-393) U/L Urine Color Thornton Urine Appearance Cloudy Urine pH 5.0 (4.5-8.0) Ur Specific [place] 1.020 (1.008-1.030) Urine Protein Negative (NEGATIVE) mg/dL Urine Glucose (UA) Normal (NEGATIVE) mg/dL Urine Ketones 15 H (NEGATIVE) mg/dL Urine Occult Blood Moderate (NEGATIVE) Urine Nitrite Negative (NEGATIVE) Urine Bilirubin Small (NEGATIVE) Urine Urobilinogen 4 (NORMAL) mg/dL Ur Leukocyte Esterase Small (NEGATIVE) Urine RBC 5-10 H (0-5) Urine WBC 0-5 (0-5) Ur Epithelial Cells Moderate Amorphous Sediment Moderate Urine Bacteria Few Urine Mucus Few Urine Other See note Meds: Medications Generic Name Dose Route Start Last Admin Trade Name Freq PRN Reason Stop Dose Admin Lactated Ringer's 1,000 mls @ 500 mls/hr 06/14/17 02:00 06/14/17 02:02 Ringers, Lactated IV 500 mls/hr ASDIRECTED CRISTAL Administration Sodium Chloride 100 mls @ 3 mls/sec 06/14/17 02:00 06/14/17 02:58 Normal Saline IV 3 mls/sec ASDIRECTED CRISTAL Administration Sodium Chloride 10 ml 06/14/17 01:48 Saline Flush FLUSH ASDIRECTED PRN Keep Vein Open Discontinued Medications Generic Name Dose Route Start Last Admin Trade Name Freq PRN Reason Stop Dose Admin Hydromorphone HCl 1 mg 06/14/17 01:48 06/14/17 02:06 Dilaudid IVPUSH 06/14/17 01:49 1 mg .ONETIME ONE Administration Iopamidol 147 ml 06/14/17 02:00 06/14/17 02:58 Isovue-300 (61%) IV 147 ml . DIRECTED CRISTAL Administration Ondansetron HCl 4 mg 06/14/17 01:48 06/14/17 02:04 Zofran IVPUSH 06/14/17 01:49 4 mg ONETIME ONE Administration Departure - Departure Time of Disposition: 04:28 Disposition: Admitted As Inpatient 67 Condition: Good Clinical Impression: Dysphagia Qualifiers: Dysphagia type: unspecified Qualified Code(s): R13.10 - Dysphagia, unspecified - Discharge Information Referrals: Juliet Keen NP [Primary Care Provider] - Forms: ED Department Discharge - My Orders Last 24 Hours: My Active Orders 06/14/17 01:48 Abdomen Pelvis w Cont [CT] Urgent Sodium Chloride 0.9% [Saline Flush] 10 ml FLUSH ASDIRECTED PRN ED Antiemetic Medication Reflex [OM.PC] Click to Edit ED Pain Medications Reflex [OM.PC] Click to Edit Peripheral IV Insertion Adult [OM.PC] Urgent 06/14/17 01:49 Peripheral IV Care [RC] . DIRECTED 06/14/17 02:00 Lactated Ringers [Ringers, Lactated] 1,000 ml IV ASDIRECTED Sodium Chloride 0.9% [Normal Saline] 100 ml IV ASDIRECTED - Assessment/Plan Last 24 Hours: My Active Orders 06/14/17 01:48 Abdomen Pelvis w Cont [CT] Urgent Sodium Chloride 0.9% [Saline Flush] 10 ml FLUSH ASDIRECTED PRN ED Antiemetic Medication Reflex [OM.PC] Click to Edit ED Pain Medications Reflex [OM.PC] Click to Edit Peripheral IV Insertion Adult [OM.PC] Urgent 06/14/17 01:49 Peripheral IV Care [RC] . DIRECTED 06/14/17 02:00 Lactated Ringers [Ringers, Lactated] 1,000 ml IV ASDIRECTED Sodium Chloride 0.9% [Normal Saline] 100 ml IV ASDIRECTED Plan: Assessment Acuity = acute Site and laterality = epigastric pain with dysphagia complicated in a patient with known history of gastric bypass Raul-en-Y Etiology = suspicious for stricture Manifestations = none Location of injury = Home Lab values = CBC within normal limits bilirubin elevated 1.1 consistent hyperbilirubinemia, urinalysis reveals 15 ketones consistent ketonuria RBCs 5- [address] scan demonstrates nonobstructive nephrolithiasis bilaterally as well as a 4 cm ovarian cyst Plan Called and discussed the case with Dr. Brown general surgery kindly agreed to evaluate the patient in the hospital plan for admission Patient was in agreement with the plan all questions were answered This note was dictated using [employer] voice recognition software please call with any questions.
[2017-06-14] MEDS ORDERED: Iopamidol 612 MG/ML 150 ML Bottle IV SCH (02:00)
[2017-06-14] MEDS ORDERED: Lactated Ringers 1,000 ML IV SCH ×2 (02:00→04:45)
[2017-06-14] MEDS ORDERED: Sodium Chloride 0.9% 100 ML IV SCH (02:00)
[2017-06-14] MEDS: HYDROmorphone 0.5 MG/0.5 ML Syringe IVPUSH PRN ×3 (05:27→21:23)
--- NOTE | 2017-06-14 07:22 | PCM.HP ---
H&P History of Present Illness - General Date of Service: 06/14/17 Admit Problem/Dx: Admission Diagnosis/Problem Admission Diagnosis/Problem Dysphagia Source of Information: Patient History Limitations: Reports: No Limitations - History of Present Illness Initial Comments - Free Text/Narative: Chantelle states she had a sudden onset of mid epigastric abdominal pain last evening. Location: Reports: Abdomen (mid epigastric ) Quality: Reports: Burning, Pressure, Same as Previous Episode Severity: Severe Improves with: Reports: Medication Worsens with: Reports: Breathing, Eating, Movement Associated Symptoms: Reports: No Other Symptoms epigastric Pain Score (Numeric/FACES): 3 - Related Data Allergies/Adverse Reactions: Allergies Allergy/AdvReac Type Severity Reaction Status Date / Time No Known Allergies Allergy Verified 12/12/16 10:23 Home Medications: Home Meds SUMAtriptan [Imitrex] 50 mg PO ASDIRECTED PRN 12/05/14 [History] Cyanocobalamin (Vitamin B-12) [Vitamin B-12] 1,000 mcg SL DAILY 11/16/16 [ History] Pediatric Multivit #17/Iron [Children's Chewables] 1 tab PO BID 11/16/16 [ History] Acetaminophen [Tylenol Jr. 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 Plantar fasciitias Neurological History: Reports: Concussion, Migraines Psychiatric History: Reports: Anxiety, Depression Endocrine/Metabolic History: Reports: Obesity/BMI 30+ Hematologic History: Reports: Iron Deficiency Dermatologic History: Reports: None - Infectious Disease History Infectious Disease History: Reports: Chicken Pox - Past Surgical History HEENT Surgical History: Reports: None Cardiovascular Surgical History: Reports: None Respiratory Surgical History: Reports: None GI Surgical History: Reports: Bariatric Procedure, Hernia, Inguinal Female Surgical History: Reports: None Endocrine Surgical History: Reports: None Neurological Surgical History: Reports: None Musculoskeletal Surgical History: Reports: None Social & Family History - Family History Family Medical History: Noncontributory HEENT: Reports: None Cardiac: Reports: Hypertension Respiratory: Reports: Asthma, COPD, Sleep Apnea GI: Reports: GERD, Irritable Bowel Syndrome - Tobacco Use Smoking Status *Q: Current Every Day Smoker Years of Tobacco use: 4 Packs/Tins Daily: 0.5 Used Tobacco, but Quit: No Month Tobacco Last Used: 6 Second Hand Smoke Exposure: No - Caffeine Use Caffeine Use: Reports: Coffee Other Caffeine Use: 1 q week - Alcohol Use Days Per Week of Alcohol Use: 1 Number of Drinks Per Day: 0 Total Drinks Per Week: 0 Date of Last Drink: 06/13/17 Time of Last Drink: 20:00 - Recreational Drug Use Recreational Drug Use: No H&P Review of Systems - Review of Systems: Review Of Systems: See Below General: Reports: No Symptoms HEENT: Reports: No Symptoms Pulmonary: Reports: No Symptoms Cardiovascular: Reports: No Symptoms Gastrointestinal: Reports: Abdominal Pain, Decreased Appetite Genitourinary: Reports: No Symptoms Musculoskeletal: Reports: No Symptoms Skin: Reports: No Symptoms Psychiatric: Reports: No Symptoms Neurological: Reports: No Symptoms Hematologic/Lymphatic: Reports: No Symptoms Immunologic: Reports: No Symptoms Exam - Exam Exam: See Below - Vital Signs Vital Signs: Last Vital Signs Temp 97.1 F 06/14/17 05:15 Pulse 96 06/14/17 05:15 Resp 18 06/14/17 05:15 BP 96/52 L 06/14/17 05:15 Pulse Ox 100 06/14/17 05:15 Weight: 216 lb 9.6 oz - Exam Quality Assessment: DVT Prophylaxis General: Alert, Oriented, Cooperative, Mild Distress HEENT: PERRLA Neck: Supple, Trachea Midline Lungs: Clear to Auscultation, Normal Respiratory Effort Cardiovascular: Regular Rate, Regular Rhythm GI/Abdominal Exam: Tender (mid epigastric area) (Female) Exam: Deferred Rectal (Female) Exam: Deferred Back Exam: Normal Inspection, Full Range of Motion Extremities: Normal Inspection Skin: Warm, Dry, Intact Neurological: Cranial Nerves Intact, Reflexes Equal Bilateral Neuro Extensive - Mental Status: Alert, Oriented x3, Normal Mood/Affect, Normal Cognition Neuro Extensive - Motor, Sensory, Reflexes: CN II-XII Intact Psychiatric: Alert, Normal Affect, Normal Mood - Patient Data Result Diagrams: 06/14/17 01:48 06/14/17 01:48 *Q Meaningful Use (ADM) - VTE *Q VTE Criteria *Q: - Stroke *Q Stroke Criteria *Q: - AMI *Q AMI Criteria *Q: Problem List Initiated/Reviewed/Updated: Yes Orders Last 24hrs: Active Orders 24 hr Category Date Time Status Dextrose 5%-Lactated Ringers @ 150 MLS/HR(1,000ml) Med 06/14/17 07:15 Ordered Dextrose 5%-Lactated Ringers 1,000 ml IV ASDIRECTED Glycopyrrolate Med 06/14/17 07:14 Once 0.4 mg IVPUSH ONETIME ONE HYDROmorphone [Dilaudid] Med 06/14/17 04:33 Active 0.5 mg IVPUSH Q2H PRN Ondansetron [Zofran] Med 06/14/17 04:33 Active 4 mg IVPUSH Q4H PRN Pantoprazole [ProTONIX IV] Med 06/14/17 07:15 Ordered 40 mg IVPUSH Q12H Medication Orders Glycopyrrolate (Glycopyrrolate) 0.4 mg IVPUSH ONETIME ONE Stop: 06/14/17 07:15 Hydromorphone HCl (Dilaudid) 0.5 mg IVPUSH Q2H PRN PRN Reason: Pain Last Admin: 06/14/17 05:27 Dose: 0.5 mg Dextrose/Lactated Ringer's (Dextrose 5%-Lactated Ringers) 1,000 mls @ 150 mls/ hr IV ASDIRECTED [facility] Ondansetron HCl (Zofran) 4 mg IVPUSH Q4H PRN PRN Reason: Nausea/Vomiting Pantoprazole Sodium (Protonix Iv) 40 mg IVPUSH Q12H [facility] Assessment/Plan Comment:: Assessment: Mid Epigastric Abdominal pain History of ulcer Plan: EGD with possible dilation and biopsies 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
[2017-06-14] MEDS ORDERED: Propofol 200 MG/20 ML SDV ONE (07:44)
[2017-06-14] MEDS ORDERED: Midazolam 1 MG/ML 2 ML SDV ONE (07:45)
[2017-06-14] MEDS ORDERED: fentaNYL 100 MCG/2 ML SDV ONE (07:45)
[2017-06-14] MEDS: Pantoprazole 40 MG Vial IVPUSH SCH ×2 (07:47→20:11)
[2017-06-14] MEDS ORDERED: Glycopyrrolate 0.2 MG/ML 2 ML SDV IVPUSH ONE (08:00)
[2017-06-14] MEDS: Ondansetron 4 MG/2 ML SDV IVPUSH PRN ×3 (08:25→21:32)
[2017-06-14] MEDS: Dextrose 5%-Lactated Ringers 1,000 ML IV SCH ×2 (11:57→21:02)
[2017-06-14] MEDS: Lidocaine 2% 60 ML, Alum Hydrox/Mag Hydrox/Simeth 360 ML PO PRN ×4 (11:58→18:33)
[2017-06-14] MEDS: Acetaminophen 160 MG Tab,Disintegrating PO PRN (18:34)
[2017-06-14] MEDS: Metoclopramide 10 MG/2 ML SDV IV SCH (23:29)
[2017-06-15] MEDS: HYDROmorphone 0.5 MG/0.5 ML Syringe IVPUSH PRN ×4 (00:23→23:16)
[2017-06-15] MEDS: Dextrose 5%-Lactated Ringers 1,000 ML IV SCH ×3 (03:59→21:16)
[2017-06-15] MEDS: Metoclopramide 10 MG/2 ML SDV IV SCH ×4 (05:36→23:16)
--- NOTE | 2017-06-15 07:34 | PCM.SURGPN ---
- General Info Date of Service: 06/15/17 POD#: 0 Admission Diagnosis/Problem: Abdominal pain Functional Status: Reports: Tolerating Diet (with viscous lidocaine and maalox ) , Ambulating, Urinating - Review of Systems General: Reports: No Symptoms HEENT: Reports: Headaches Pulmonary: Reports: No Symptoms Cardiovascular: Reports: No Symptoms Gastrointestinal: Reports: Abdominal Pain, Flatus, Nausea Genitourinary: Reports: No Symptoms Musculoskeletal: Reports: No Symptoms Skin: Reports: No Symptoms Neurological: Reports: No Symptoms Psychiatric: Reports: No Symptoms Systems Review Comment:: Chantelle states that she didn't sleep well and has a headache and abdominal pain this morning. She states that she felt well yesterday and did well with meals until her HS snack of cottage cheese where she vomited. She is scheduled for a HIDA scan this morning. - Patient Data Vitals - Most Recent: Last Vital Signs Temp 35.7 C 06/15/17 03:00 Pulse 84 06/15/17 03:00 Resp 14 06/15/17 03:00 BP 106/48 L 06/15/17 03:00 Pulse Ox 98 06/15/17 03:00 Weight - Most Recent: 98.248 kg I&O - Last 24 Hours: Intake & Output 06/14/17 06/15/17 06/15/17 22:59 06:59 14:59 Intake Total 1886 2472 Output Total 400 400 Balance 1486 2072 Med Orders - Current: Current Medications Acetaminophen (Tylenol Jr. Meltaways) 640 mg PO Q4H PRN PRN Reason: Pain Last Admin: 06/14/17 18:34 Dose: 640 mg Lidocaine HCl 60 ml/ Al (Hydroxide/Mg Hydroxide 360 ml) 0 ml PO TIDAC PRN PRN Reason: PAIN Last Admin: 06/14/17 18:33 Dose: 60 ml Hydromorphone HCl (Dilaudid) 0.5 mg IVPUSH Q2H PRN PRN Reason: Pain Last Admin: 06/15/17 00:23 Dose: 0.5 mg Dextrose/Lactated Ringer's (Dextrose 5%-Lactated Ringers) 1,000 mls @ 150 mls/ hr IV ASDIRECTED [facility]AL Last Admin: 06/15/17 03:59 Dose: 150 mls/hr Ketorolac Tromethamine (Toradol) 60 mg IM ONETIME ONE Stop: 06/15/17 07:46 Metoclopramide HCl (Reglan) 10 mg IV Q6H [facility] Last Admin: 06/15/17 05:36 Dose: 10 mg Ondansetron HCl (Zofran) 4 mg IVPUSH Q4H PRN PRN Reason: Nausea/Vomiting Last Admin: 06/14/17 21:32 Dose: 4 mg Pantoprazole Sodium (Protonix Iv) 40 mg IVPUSH Q12H [facility] Last Admin: 06/14/17 20:11 Dose: 40 mg Discontinued Medications Fentanyl (Sublimaze) Confirm Administered Dose 100 mcg .ROUTE .STK-MED ONE Stop: 06/14/17 07:46 Glycopyrrolate (Glycopyrrolate) 0.4 mg IVPUSH ONETIME ONE Stop: 06/14/17 08:01 Last Admin: 06/14/17 08:34 Dose: 0.4 mg Hydromorphone HCl (Dilaudid) 1 mg IVPUSH .ONETIME ONE Stop: 06/14/17 01:49 Last Admin: 06/14/17 02:06 Dose: 1 mg Lactated Ringer's (Ringers, Lactated) 1,000 mls @ 500 mls/hr IV ASDIRECTED [facility] Last Admin: 06/14/17 02:02 Dose: 500 mls/hr Sodium Chloride (Normal Saline) 100 mls @ 3 mls/sec IV ASDIRECTED [facility] Last Admin: 06/14/17 02:58 Dose: 3 mls/sec Lactated Ringer's (Ringers, Lactated) 1,000 mls @ 125 mls/hr IV ASDIRECTED [facility] Last Admin: 06/14/17 05:26 Dose: 125 mls/hr Iopamidol (Isovue-300 (61%)) 147 ml IV . DIRECTED [facility] Last Admin: 06/14/17 02:58 Dose: 147 ml Metoclopramide HCl (Reglan) 10 mg IV Q6H [facility] Midazolam HCl (Versed 1 Mg/Ml) Confirm Administered Dose 2 mg .ROUTE .STK-MED ONE Stop: 06/14/17 07:46 Ondansetron HCl (Zofran) 4 mg IVPUSH ONETIME ONE Stop: 06/14/17 01:49 Last Admin: 06/14/17 02:04 Dose: 4 mg Propofol (Diprivan 20 Ml) Confirm Administered Dose 200 mg .ROUTE .STK-MED ONE Stop: 06/14/17 07:45 Sodium Chloride (Saline Flush) 10 ml FLUSH ASDIRECTED PRN PRN Reason: Keep Vein Open - Exam Wound/Incisions: Other (NA) Quality Assessment: DVT Prophylaxis General: Alert, Oriented, No Acute Distress HEENT: Pupils Equal, Pupils Reactive Neck: Supple Lungs: Clear to Auscultation, Normal Respiratory Effort Cardiovascular: Regular Rate, Regular Rhythm, No Murmurs GI/Abdominal Exam: Soft, No Organomegaly, Tender (RUQ) Extremities: Normal Inspection Skin: Warm, Dry, Intact Neurological: No New Focal Deficit Psy/Mental Status: Alert, Normal Affect, Normal Mood - Problem List & Annotations (1) Abdominal pain SNOMED Code(s): 08212264 Code(s): R10.9 - UNSPECIFIED ABDOMINAL PAIN Status: Acute Current Visit: Yes Qualifiers: Abdominal location: right upper quadrant Qualified Code(s): R10.11 - Right upper quadrant pain - Problem List Review Problem List Initiated/Reviewed/Updated: Yes - My Orders Last 24 Hours: Active Orders 24 hr Category Date Time Status Patient Status [ADT] Routine ADT 06/14/17 08:55 Active Consult to Pipe Bowl Paint Trimmer [CONS] Routine Cons 06/14/17 09:54 Active Bariatric Diet [DIET] Diet 06/14/17 Lunch Active NPO After Midnight [Nothing per Oral After Midnight Diet 06/15/17 Breakfast Active Diet] [DIET] CCK [Cholescintigraphy w Pharm Int] [NM] Routine Exams 06/15/17 06:00 Ordered ALMA TEST [RM] Routine Lab 06/14/17 08:51 Received Acetaminophen [Tylenol Jr. Meltaways] Med 06/14/17 17:37 Active 640 mg PO Q4H PRN Ketorolac [Toradol] Med 06/15/17 07:45 Once 60 mg IM ONETIME ONE Lidocaine 2% [Xylocaine 2% Viscous] 60 ml Med 06/14/17 10:14 Active Alum Hydrox/Mag Hydrox/Simeth [Mag-Al Plus] 360 ml PO TIDAC Metoclopramide [Reglan] Med 06/15/17 00:00 Active 10 mg IV Q6H Medication Orders Acetaminophen (Tylenol Jr. Meltaways) 640 mg PO Q4H PRN PRN Reason: Pain Last Admin: 06/14/17 18:34 Dose: 640 mg Lidocaine HCl 60 ml/ Al (Hydroxide/Mg Hydroxide 360 ml) 0 ml PO TIDAC PRN PRN Reason: PAIN Last Admin: 06/14/17 18:33 Dose: 60 ml Admin: 06/14/17 11:58 Dose: 60 ml Hydromorphone HCl (Dilaudid) 0.5 mg IVPUSH Q2H PRN PRN Reason: Pain Last Admin: 06/15/17 00:23 Dose: 0.5 mg Admin: 06/14/17 21:23 Dose: 0.5 mg Admin: 06/14/17 11:58 Dose: 0.5 mg Admin: 06/14/17 05:27 Dose: 0.5 mg Dextrose/Lactated Ringer's (Dextrose 5%-Lactated Ringers) 1,000 mls @ 150 mls/ hr IV ASDIRECTED [facility] Last Admin: 06/15/17 03:59 Dose: 150 mls/hr Infusion: 06/15/17 03:43 Dose: 150 mls/hr Admin: 06/14/17 21:02 Dose: 150 mls/hr Infusion: 06/14/17 18:38 Dose: 150 mls/hr Admin: 06/14/17 11:57 Dose: 150 mls/hr Ketorolac Tromethamine (Toradol) 60 mg IM ONETIME ONE Stop: 06/15/17 07:46 Metoclopramide HCl (Reglan) 10 mg IV Q6H [facility] Last Admin: 06/15/17 05:36 Dose: 10 mg Admin: 06/14/17 23:29 Dose: 10 mg Ondansetron HCl (Zofran) 4 mg IVPUSH Q4H PRN PRN Reason: Nausea/Vomiting Last Admin: 06/14/17 21:32 Dose: 4 mg Admin: 06/14/17 12:43 Dose: 4 mg Admin: 06/14/17 08:25 Dose: 4 mg Pantoprazole Sodium (Protonix Iv) 40 mg IVPUSH Q12H [facility] Last Admin: 06/14/17 20:11 Dose: 40 mg Admin: 06/14/17 07:47 Dose: 40 mg - Assessment Assessment (Free Text/Narrative):: Mid-epigastric/RUQ pain. History of ulcer. - Plan Plan (Free Text/Narrative):: 1. HIDA scan today 2. Decrease IV fluids to 100 ml/hr 3. 60 mg IM toradol for headache 4. 4 mg IV zofran q 4 hours prn for nausea
[2017-06-15] MEDS ORDERED: Ketorolac 60 MG/2 ML SDV IM ONE ×2 (07:45→16:09)
[2017-06-15] MEDS: Pantoprazole 40 MG Vial IVPUSH SCH ×2 (10:34→19:33)
--- NOTE | 2017-06-15 13:08 | NM ---
Cholescintigraphy w Pharm Int HISTORY: Biliary Dyskinesia TECHNIQUE: The patient received 2.5 millicuries of technetium 99 Choletec IV followed by static imagi ng of the upper abdomen. CCK not administered since no gallbladder filling. COMPARISON: None FINDINGS: There is normal and timely distribution of radiotracer throughout the liver, common bile du ct, and proximal small bowel. Gallbladder not visualized despite imaging through 4 hours. Unable to a dminister morphine at this facility. Impression: Abnormal study with nonvisualization of the gallbladder through 4 hours of imaging. Re mainder of the biliary system patent.
[2017-06-15] MEDS: Acetaminophen 160 MG Tab,Disintegrating PO PRN (13:42)
[2017-06-15] MEDS ORDERED: Metoclopramide 10 MG/2 ML SDV IV SCH (23:00)
[2017-06-16] MEDS: Metoclopramide 10 MG/2 ML SDV IV SCH ×3 (05:27→17:34)
[2017-06-16] MEDS: HYDROmorphone 0.5 MG/0.5 ML Syringe IVPUSH PRN (05:49)
[2017-06-16] MEDS ORDERED: Propofol 200 MG/20 ML SDV ONE (08:02)
[2017-06-16] MEDS ORDERED: Ondansetron 4 MG/2 ML SDV ONE (08:03)
[2017-06-16] MEDS ORDERED: Succinylcholine 200 MG/10 ML MDV ONE (08:03)
[2017-06-16] MEDS ORDERED: Dexamethasone 4 MG/ML SDV ONE (08:03)
[2017-06-16] MEDS ORDERED: Glycopyrrolate 0.2 MG/ML 5 ML MDV ONE (08:03)
[2017-06-16] MEDS ORDERED: Neostigmine Methylsulfate 1 MG/ML 5 ML Syringe ONE (08:03)
[2017-06-16] MEDS ORDERED: Bupivacaine 0.5%/EPINEPHrine 1:200,000 50 ML MDV ONE (08:42)
[2017-06-16] MEDS ORDERED: Naloxone 0.4 MG/ML SDV IV PRN (09:08)
[2017-06-16] MEDS ORDERED: HYDROmorphone/Normal Saline 15 MG/30 ML PCA IV PRN (09:08)
[2017-06-16] MEDS: Pantoprazole 40 MG Vial IVPUSH SCH ×2 (09:12→20:03)
--- NOTE | 2017-06-16 09:44 | PCM.SURGPN ---
- General Info Date of Service: 06/16/17 Date of Surgery/Procedure: 06/16/17 POD#: 0 Admission Diagnosis/Problem: Abdominal pain Functional Status: Reports: Pain Controlled, Tolerating Diet (now npo for surgery), Ambulating, Urinating - Review of Systems General: Reports: No Symptoms HEENT: Reports: No Symptoms Pulmonary: Reports: No Symptoms Cardiovascular: Reports: No Symptoms Gastrointestinal: Reports: Abdominal Pain, Nausea Genitourinary: Reports: No Symptoms Musculoskeletal: Reports: No Symptoms Skin: Reports: No Symptoms Neurological: Reports: No Symptoms Psychiatric: Reports: No Symptoms Systems Review Comment:: Chantelle reports that her abdominal pain continues and woke her from sleep last night. She has RUQ pain and notes some nausea. She reports that her headache has resolved since yesterday. She denies having any questions or concerns regarding surgery scheduled for today. - Patient Data Vitals - Most Recent: Last Vital Signs Temp 36.1 C 06/16/17 07:22 Pulse 60 06/16/17 07:22 Resp 16 06/16/17 07:22 BP 107/56 L 06/16/17 07:22 Pulse Ox 93 L 06/16/17 07:22 Weight - Most Recent: 98.248 kg I&O - Last 24 Hours: Intake & Output 06/15/17 06/16/17 06/16/17 22:59 06:59 14:59 Intake Total 2436 1118 Output Total 300 500 Balance 2136 1118 -500 Lab Results Last 24 Hrs: Laboratory Results - last 24 hr 06/16/17 06/16/17 Range/Units 04:00 04:00 WBC 5.0 (4.5-11.0) K/uL RBC 3.55 (3.30-5.50) M/uL Hgb 10.0 L D (12.0-15.0) g/dL Hct 31.0 L (36.0-48.0) % MCV 87 (80-98) fL MCH 28 (27-31) pg MCHC 32 (32-36) % Plt Count 215 (150-400) K/uL Sodium 144 (140-148) mmol/L Potassium 3.4 L (3.6-5.2) mmol/L Chloride 109 H (100-108) mmol/L Carbon Dioxide 26 (21-32) mmol/L Anion Gap 12.4 (5.0-14.0) mmol/L BUN 8 (7-18) mg/dL Creatinine 0.5 L (0.6-1.0) mg/dL Est Cr Clr Drug Dosing 153.45 mL/min Estimated GFR (MDRD) > 60 (>60) Glucose 90 (74-106) mg/dL Calcium 7.8 L (8.5-10.1) mg/dL Phosphorus 3.7 (2.5-4.9) mg/dL Magnesium 1.8 (1.8-2.4) mg/dL Total Bilirubin 0.7 (0.2-1.0) mg/dL AST 11 L (15-37) U/L ALT 17 (12-78) U/L Alkaline Phosphatase 77 (46-116) U/L Total Protein 5.4 L (6.4-8.2) g/dL Albumin 2.7 L (3.4-5.0) g/dL Globulin 2.7 (2.3-3.5) g/dL Albumin/Globulin Ratio 1.0 L (1.2-2.2) Med Orders - Current: Current Medications Acetaminophen (Tylenol Jr. Meltaways) 640 mg PO Q4H PRN PRN Reason: Pain Last Admin: 06/15/17 13:42 Dose: 640 mg Lidocaine HCl 60 ml/ Al (Hydroxide/Mg Hydroxide 360 ml) 0 ml PO TIDAC PRN PRN Reason: PAIN Last Admin: 06/14/17 18:33 Dose: 60 ml Hydromorphone HCl (Dilaudid) 0.5 mg IVPUSH Q2H PRN PRN Reason: Pain Last Admin: 06/16/17 05:49 Dose: 0.5 mg Hydromorphone HCl (Dilaudid Associate Data Scientist 15 Mg In Ns 30 Ml) 0 mg IV ASDIRECTED PRN; Protocol PRN Reason: RAILROAD PURCHASING AGENT PAIN CONTROL Dextrose/Lactated Ringer's (Dextrose 5%-Lactated Ringers) 1,000 mls @ 100 mls/ hr IV ASDIRECTED [facility] Last Admin: 06/15/17 21:16 Dose: 100 drops/hr Cefoxitin Sodium 2 gm/ Sodium (Chloride) 50 mls @ 100 mls/hr IV ONETIME ONE Stop: 06/16/17 11:29 Metoclopramide HCl (Reglan) 10 mg IV Q6H [facility] Last Admin: 06/16/17 05:27 Dose: 10 mg Naloxone HCl (Narcan) 0.1 mg IV ASDIRECTED PRN PRN Reason: decreased respiratory rate Ondansetron HCl (Zofran) 4 mg IVPUSH Q4H PRN PRN Reason: Nausea/Vomiting Last Admin: 06/14/17 21:32 Dose: 4 mg Pantoprazole Sodium (Protonix Iv) 40 mg IVPUSH Q12H [facility] Last Admin: 06/16/17 09:12 Dose: 40 mg Discontinued Medications Bupivacaine HCl/Epinephrine Bitart (Marcaine 0.5%/Epinephrine 1:200,000) Confirm Administered Dose 50 ml .ROUTE .STK-MED ONE Stop: 06/16/17 08:43 Dexamethasone (Dexamethasone) Confirm Administered Dose 4 mg .ROUTE .STK-MED ONE Stop: 06/16/17 08:04 Fentanyl (Sublimaze) Confirm Administered Dose 100 mcg .ROUTE .STK-MED ONE Stop: 06/14/17 07:46 Fentanyl Citrate (Fentanyl) Confirm Administered Dose 500 mcg .ROUTE .STK-MED ONE Stop: 06/16/17 08:03 Glycopyrrolate (Glycopyrrolate) 0.4 mg IVPUSH ONETIME ONE Stop: 06/14/17 08:01 Last Admin: 06/14/17 08:34 Dose: 0.4 mg Glycopyrrolate (Robinul) Confirm Administered Dose 1 mg .ROUTE .STK-MED ONE Stop: 06/16/17 08:04 Hydromorphone HCl (Dilaudid) 1 mg IVPUSH .ONETIME ONE Stop: 06/14/17 01:49 Last Admin: 06/14/17 02:06 Dose: 1 mg Lactated Ringer's (Ringers, Lactated) 1,000 mls @ 500 mls/hr IV ASDIRECTED [facility] Last Admin: 06/14/17 02:02 Dose: 500 mls/hr Sodium Chloride (Normal Saline) 100 mls @ 3 mls/sec IV ASDIRECTED [facility] Last Admin: 06/14/17 02:58 Dose: 3 mls/sec Lactated Ringer's (Ringers, Lactated) 1,000 mls @ 125 mls/hr IV ASDIRECTED [facility] Last Admin: 06/14/17 05:26 Dose: 125 mls/hr Dextrose/Lactated Ringer's (Dextrose 5%-Lactated Ringers) 1,000 mls @ 150 mls/ hr IV ASDIRECTED [facility] Last Admin: 06/15/17 03:59 Dose: 150 mls/hr Iopamidol (Isovue-300 (61%)) 147 ml IV . DIRECTED [facility] Last Admin: 06/14/17 02:58 Dose: 147 ml Ketorolac Tromethamine (Toradol) 60 mg IM ONETIME ONE Stop: 06/15/17 07:46 Last Admin: 06/15/17 07:37 Dose: 60 mg Ketorolac Tromethamine (Toradol) 60 mg IM ONETIME ONE Stop: 06/15/17 16:10 Last Admin: 06/15/17 16:42 Dose: 60 mg Metoclopramide HCl (Reglan) 10 mg IV Q6H [facility] Midazolam HCl (Versed 1 Mg/Ml) Confirm Administered Dose 2 mg .ROUTE .STK-MED ONE Stop: 06/14/17 07:46 Neostigmine Methylsulfate (Neostigmine) Confirm Administered Dose 5 mg .ROUTE .STK-MED ONE Stop: 06/16/17 08:04 Ondansetron HCl (Zofran) 4 mg IVPUSH ONETIME ONE Stop: 06/14/17 01:49 Last Admin: 06/14/17 02:04 Dose: 4 mg Ondansetron HCl (Zofran) Confirm Administered Dose 4 mg .ROUTE .STK-MED ONE Stop: 06/16/17 08:04 Propofol (Diprivan 20 Ml) Confirm Administered Dose 200 mg .ROUTE .STK-MED ONE Stop: 06/14/17 07:45 Propofol (Diprivan 20 Ml) Confirm Administered Dose 200 mg .ROUTE .STK-MED ONE Stop: 06/16/17 08:03 Sodium Chloride (Saline Flush) 10 ml FLUSH ASDIRECTED PRN PRN Reason: Keep Vein Open Succinylcholine Chloride (Quelicin) Confirm Administered Dose 200 mg .ROUTE .STK -MED ONE Stop: 06/16/17 08:04 - Exam Wound/Incisions: Other (NA) Quality Assessment: DVT Prophylaxis General: Alert, Oriented, No Acute Distress HEENT: Pupils Equal, Pupils Reactive Neck: Supple Lungs: Clear to Auscultation, Normal Respiratory Effort Cardiovascular: Regular Rate, Regular Rhythm GI/Abdominal Exam: Normal Bowel Sounds, Soft, No Organomegaly, Tender (RUQ) Extremities: Normal Inspection, Non-Tender Skin: Warm, Dry, Intact Neurological: No New Focal Deficit Psy/Mental Status: Alert, Normal Affect, Normal Mood - Problem List & Annotations (1) Abdominal pain SNOMED Code(s): 19846769 Code(s): R10.9 - UNSPECIFIED ABDOMINAL PAIN Status: Acute Current Visit: Yes Qualifiers: Abdominal location: right upper quadrant Qualified Code(s): R10.11 - Right upper quadrant pain - Problem List Review Problem List Initiated/Reviewed/Updated: Yes - My Orders Last 24 Hours: Active Orders 24 hr Category Date Time Status Verify Patient Consent Obtain [RC] ASDIRECTED Care 06/15/17 13:49 Active Clear Liquid Diet [DIET] Diet 06/15/17 Dinner Active NPO [Nothing Per Oral Diet] [DIET] Diet 06/16/17 Breakfast Active HYDROmorphone/Normal Saline [Dilaudid RAILROAD PURCHASING AGENT 15 MG in NS Med 06/16/17 09:08 Active 30 ML] 0 mg IV ASDIRECTED PRN Naloxone [Narcan] Med 06/16/17 09:08 Active 0.1 mg IV ASDIRECTED PRN cefOXitin [Mefoxin] 2 gm Med 06/16/17 11:00 Active Sodium Chloride 0.9% [Normal Saline] 50 ml IV ONETIME Sequential Compression Device [OM.PC] Routine Oth 06/15/17 13:51 Ordered Medication Orders Acetaminophen (Tylenol JrRoberta Vang) 640 mg PO Q4H PRN PRN Reason: Pain Last Admin: 06/15/17 13:42 Dose: 640 mg Admin: 06/14/17 18:34 Dose: 640 mg Lidocaine HCl 60 ml/ Al (Hydroxide/Mg Hydroxide 360 ml) 0 ml PO TIDAC PRN PRN Reason: PAIN Last Admin: 06/14/17 18:33 Dose: 60 ml Admin: 06/14/17 11:58 Dose: 60 ml Hydromorphone HCl (Dilaudid) 0.5 mg IVPUSH Q2H PRN PRN Reason: Pain Last Admin: 06/16/17 05:49 Dose: 0.5 mg Admin: 06/15/17 23:16 Dose: 0.5 mg Admin: 06/15/17 18:28 Dose: 0.5 mg Admin: 06/15/17 10:39 Dose: 0.5 mg Admin: 06/15/17 00:23 Dose: 0.5 mg Admin: 06/14/17 21:23 Dose: 0.5 mg Admin: 06/14/17 11:58 Dose: 0.5 mg Admin: 06/14/17 05:27 Dose: 0.5 mg Hydromorphone HCl (Dilaudid Associate Data Scientist 15 Mg In Ns 30 Ml) 0 mg IV ASDIRECTED PRN; Protocol PRN Reason: RAILROAD PURCHASING AGENT PAIN CONTROL Dextrose/Lactated Ringer's (Dextrose 5%-Lactated Ringers) 1,000 mls @ 100 mls/ hr IV ASDIRECTED [facility] Last Admin: 06/15/17 21:16 Dose: 100 drops/hr Infusion: 06/15/17 20:39 Dose: 100 drops/hr Admin: 06/15/17 10:39 Dose: 100 drops/hr Cefoxitin Sodium 2 gm/ Sodium (Chloride) 50 mls @ 100 mls/hr IV ONETIME ONE Stop: 06/16/17 11:29 Metoclopramide HCl (Reglan) 10 mg IV Q6H [facility] Last Admin: 06/16/17 05:27 Dose: 10 mg Admin: 06/15/17 23:16 Dose: 10 mg Admin: 06/15/17 17:39 Dose: 10 mg Admin: 06/15/17 13:31 Dose: 10 mg Admin: 06/15/17 05:36 Dose: 10 mg Admin: 06/14/17 23:29 Dose: 10 mg Naloxone HCl (Narcan) 0.1 mg IV ASDIRECTED PRN PRN Reason: decreased respiratory rate Ondansetron HCl (Zofran) 4 mg IVPUSH Q4H PRN PRN Reason: Nausea/Vomiting Last Admin: 06/14/17 21:32 Dose: 4 mg Admin: 06/14/17 12:43 Dose: 4 mg Admin: 06/14/17 08:25 Dose: 4 mg Pantoprazole Sodium (Protonix Iv) 40 mg IVPUSH Q12H [facility] Last Admin: 06/16/17 09:12 Dose: 40 mg Admin: 06/15/17 19:33 Dose: 40 mg Admin: 06/15/17 10:34 Dose: 40 mg Admin: 06/14/17 20:11 Dose: 40 mg Admin: 06/14/17 07:47 Dose: 40 mg - Assessment Assessment (Free Text/Narrative):: Abdominal pain, biliary dyskinesia - Plan Plan (Free Text/Narrative):: 1. Laparoscopic cholecystectomy planned for today. 2. NPO for surgery 3. Dilaudid RAILROAD PURCHASING AGENT 4. 0.1 mg Naloxone prn. 5. Cefoxitin 2 gm added to IVF Patient will monitored in the hospital overnight after surgery, and will likely discharge tomorrow. NATASHA Salinas Student
[2017-06-16] MEDS ORDERED: cefOXitin 2 GM in Sodium Chloride 0.9% 50 ML IV ONE (11:00)
[2017-06-16] MEDS: Dextrose 5%-Lactated Ringers 1,000 ML IV SCH (12:38)
[2017-06-16] MEDS ORDERED: Scopolamine 1.5 MG Transdermal Patch TRDERM SCH (14:00)
[2017-06-16] MEDS ORDERED: hydrOXYzine HCl 25 MG Tab PO PRN (14:21)
[2017-06-16] MEDS: hydrOXYzine HCl 100 MG/2 ML SDV IM PRN ×2 (15:23→21:29)
[2017-06-16] MEDS ORDERED: Cyanocobalamin (Vitamin B12) 1,000 MCG/ML SDV IM ONE (15:30)
[2017-06-16] MEDS ORDERED: Acetaminophen 325 MG Tab PO PRN (15:50)
[2017-06-16] MEDS ORDERED: MVI, Adult with Vitamin K 10 ML, Chromium/Copper/Mang/Selen/Zn 1 ML in Dextrose 5%-Lact... IV ONE ×3 (16:00)
[2017-06-16] MEDS: Cyclobenzaprine 10 MG Tab PO PRN (16:26)
[2017-06-16] MEDS: cefOXitin 2 GM in Sodium Chloride 0.9% 50 ML IV SCH ×2 (16:26→23:09)
[2017-06-17] MEDS: Metoclopramide 10 MG/2 ML SDV IV SCH ×5 (00:39→23:07)
[2017-06-17] MEDS: Dextrose 5%-Lactated Ringers 1,000 ML IV SCH ×3 (03:58→23:58)
[2017-06-17] MEDS: cefOXitin 2 GM in Sodium Chloride 0.9% 50 ML IV SCH (04:06)
--- NOTE | 2017-06-17 08:27 | PN ---
DATE OF SERVICE: 06/17/2017 SUBJECTIVE: Chantelle is postop day #1 following a laparoscopic cholecystectomy. She has had quite a bit in the way of nausea. She had a scope patch put on and she is on scheduled Reglan for nausea. Continues to use the FORKLIFT SUPERVISOR, has been sleeping well. Oral intake was 570. FADI drain put out 100 mL of a light pink serosanguineous drainage and urine output 2775 mL. REVIEW OF SYSTEMS: Remainder of review of systems is negative for any pertinent positives or negatives. OBJECTIVE: GENERAL: Chantelle Bennett is a 32-year-old female. She is sleeping with a blanket over her head. She does wake up a little bit to answer questions. VITAL SIGNS: TPR is 98.8, 52, 18. Blood pressure is 78/42. HEENT: Negative. NECK: Supple. HEART: Regular rate and rhythm. LUNGS: Clear. ABDOMEN: Dressings dry and intact. Abdominal binder is on. EXTREMITIES: SCDs are on and there is no peripheral edema. ASSESSMENT: Diagnostic laparoscopy with cholecystectomy, drainage of pericholecystic fluid collection, and repair of incarcerated umbilical hernia for subacute cholecystitis, cholelithiasis with pericholecystic fluid collection, and incarcerated umbilical hernia. Date of surgery, 06/16/2017, Sammy Brown MD PLAN: 1. Discontinue FORKLIFT SUPERVISOR and continuous pulse ox. 2. Decrease IV to 100 mL per hour. 3. Percocet 5/325 mg 1 to 2 every 4 hours p.r.n. pain. 4. Dressing off. 5. May shower. 6. Good pulmonary toilet. 7. We will evaluate p.r.n. or in a.m. 8. Plan discharge in a.m. Jonna Wesley PA-C /[id number]
[2017-06-17] MEDS: Pantoprazole 40 MG Vial IVPUSH SCH ×2 (08:48→20:57)
[2017-06-17] MEDS ORDERED: VERIFY SCOPOLAMINE PATCH TOP SCH (09:00)
[2017-06-17] MEDS: Acetaminophen/oxyCODONE 325-5 MG Tab PO PRN ×4 (09:57→23:04)
[2017-06-17] MEDS: Cyclobenzaprine 10 MG Tab PO PRN (21:37)
[2017-06-18] MEDS: Acetaminophen/oxyCODONE 325-5 MG Tab PO PRN ×2 (04:20→10:07)
[2017-06-18] MEDS: Metoclopramide 10 MG/2 ML SDV IV SCH (05:23)
[2017-06-18] MEDS: Lidocaine 2% 60 ML, Alum Hydrox/Mag Hydrox/Simeth 360 ML PO PRN ×2 (05:23)
[2017-06-18 07:00] VITALS: BP 98/48
[2017-06-18] MEDS: Pantoprazole 40 MG Vial IVPUSH SCH (09:00)
[2017-06-18] MEDS ORDERED: Scopolamine 1.5 MG Transdermal Patch TRDERM SCH (10:00)
[2017-06-18] MEDS ORDERED: Alum Hydrox/Mag Hydrox/Simeth 360 ML, Lidocaine 2% 60 ML PO SCH ×2 (11:00)
--- NOTE | 2017-06-19 08:30 | DISCH ---
FINAL DIAGNOSES: 1. Epigastric pain with no definite abnormality seen on upper GI endoscopy, status post Raul-en-Y gastric bypass. 2. Subacute chronic cholecystitis and cholelithiasis with pericholecystic inflammatory fluid collection. 3. Incarcerated umbilical hernia. 4. Bariatric surgery status. 5. History of polycystic ovarian syndrome. OPERATIVE PROCEDURES: On 06/14/2017, upper GI endoscopy with biopsies of gastric pouch for CLOtest and then on 06/16/2017 diagnostic laparoscopy with; 1. Cholecystectomy. 2. Drainage of pericholecystic inflammatory fluid collection. 3. Repair of incarcerated umbilical hernia. HOSPITAL COURSE: This is a 32-year-old status post Raul-en-Y gastric bypass last spring. She presented with ongoing epigastric pain. This was initially felt to most likely be something related to inflammation around her gastric pouch. Upper GI endoscopy was entirely normal. She did have a CLOtest obtained which was negative. Given the findings, the patient underwent a CCK-stimulated HIDA scan on 06/15/2017. This showed no filling of the gallbladder over 4 hours indicative of very acute or subacute cholecystitis. The patient subsequently underwent a laparoscopic cholecystectomy on 06/16/2017. There was a fairly pronounced inflammatory fluid collection around the area. Cultures of this did not grow anything out as of yet, that may be related to antibiotic use. That area was drained. The patient was noted to have incarcerated umbilical hernia as well, which was repaired without a mesh. During the course of hospitalization, the patient did get some relief with using the viscous Xylocaine and Maalox mix, and she will be sent home with that to use p.r.n. Otherwise, she will continue her home medications plus Percocet 5/325 mg 1 or 2 tabs q.4 hours p.r.n. pain, #40; Flexeril 10 mg p.o. q.8 hours p.r.n. muscle spasm, #25, with refill x1. She has a scopolamine patch, which will be replaced today with instructions to remove it in 4 days, i.e. on 06/22/2017. Then, we will give her Protonix 40 mg p.o. daily x30 days, #30, one refill was written. This is a medication that she may not need to be on long-term, however. She will follow up with Jonna Wesley [facility] on 06/27/2017.
[2017-06-19] MEDS ORDERED: VERIFY SCOPOLAMINE PATCH TOP SCH (09:00)
--- NOTE | 2017-06-20 08:47 | PN ---
DATE OF SERVICE: 06/15/2017 The patient continues to have some upper abdominal pain. On examination this morning, was found to have more of a pronounced right upper quadrant tenderness. The CCK stimulated HIDA scan showed nonfilling of the gallbladder, after 4 hours CCK was administered. But this might be consistent with a smoldering acute cholecystitis with an occluded cystic duct. Given this, the plan will be to proceed with a cholecystectomy tomorrow. Potential risks of the procedure including bleeding, infection, injury to underlying viscera, including the common bile duct, possibility of stones migrating into the common bile duct requiring additional procedures for correction were all reviewed. Additionally, the possibility of some persistent symptoms postoperatively were gone over and the patient wishes to proceed. Surgery will be scheduled for tomorrow. Sammy Brown MD /[id number]
--- NOTE | 2017-06-20 13:47 | OR ---
DATE OF PROCEDURE: 06/16/2017 PREOPERATIVE DIAGNOSIS: Acute or subacute cholecystitis. POSTOPERATIVE DIAGNOSES: 1. Subacute cholecystitis and cholelithiasis with pericholecystic inflammatory fluid collection. 2. Incarcerated umbilical hernia. OPERATIVE PROCEDURE: Diagnostic laparoscopy with: 1. Cholecystectomy (72631). 2. Drainage of pericholecystic inflammatory fluid collection (97757). 3. Repair of incarcerated umbilical hernia (21290). ANESTHESIA: General. EKG TECHNICIAN: Jonna Wesley PA-C and ZURI Rodriguez. INDICATION FOR PROCEDURE: Please see progress note dated 06/15/2017. DETAILS OF PROCEDURE: The patient was taken to the operating room and placed in a supine position. After general endotracheal anesthesia was induced, the abdomen was prepped and draped. A transverse subumbilical incision was made. The patient was noted to have incarcerated umbilical hernia containing some preperitoneal fat, which was not readily reducible. Underlying fascial defect measured around 8 mm. After the fat was dissected free, a 12 mm trocar was placed through the fascial defect and peritoneal cavity inflated to 15 mmHg pressure of CO2. Laparoscope was then reinserted. No underlying trocar insertion site injuries were seen. Following this, a 12 mm epigastric trocar was placed along with a single 5 mm right abdominal trocar. As the gallbladder was retracted anteriorly, there was noted to be marked inflammation in the area around the gallbladder thickly posteriorly. This contained some thinly purulent inflammatory fluid. This was evacuated and cultures were sent. At this point, the gallbladder was retracted anteriorly and laterally and the gallbladder itself was quite edematous and consistent with subacute cholecystitis. The dissection began on the gallbladder neck with the Harmonic scalpel and continued around the gallbladder neck, cystic duct junction. Once that area as well as the adjacent cystic artery both well-defined, 3 clips were placed proximally, one distally on each structure and they were divided. The gallbladder was then dissected off the gallbladder bed using Harmonic scalpel and delivered through the epigastric port which needed to wide and somewhat to accept the gallbladder and was noted to contain a multitude of small black stones. The area of dissection was inspected. No bleeding or other problems were noted. The Anoop-Lara drain was then placed through the right lateral trocar site and placed into the area of the gallbladder bed. The camera port was then brought up to the epigastric site and the trocar at the umbilical site was removed. The fascial closure of the umbilical hernia was then accomplished with placement of sutures by means of the endoscopic suture passer. These being 0 Vicryl sutures. This closed the hernia with a transverse orientation. Once these were in place, some single suture was placed in the epigastric site fascia and these trocars were removed. The peritoneal cavity deflated. The fascia sutures were then tied and the skin at each incision were then closed with 4-0 Vicryl skin stitch. The patient was taken to the recovery room in satisfactory condition. Physician procurement assistant, Jonna Wesley, played an essential role in assisting in this case helping position the patient, retract structures as needed, as well as suturing and cutting sutures when indicated. Her presence improved the patient's safety and decreased the operative time. Sammy Brown MD /[id number]
--- NOTE | 2017-06-21 08:22 | OR ---
DATE OF PROCEDURE: 06/14/2017 PREOPERATIVE DIAGNOSIS: Upper abdominal pain. POSTOPERATIVE DIAGNOSIS: Upper abdominal pain associated with normal endoscopic examination, status post Raul-en-Y gastric bypass. OPERATIVE PROCEDURE: Upper GI endoscopy with biopsies of gastric pouch for CLOtest. ANESTHESIA: IV sedation. INDICATION FOR PROCEDURE: A 32-year-old status post Raul-en-Y gastric bypass last spring, presenting with some epigastric pain, as well as dysphagia referable to the distal esophagus. Plan is to proceed with upper GI endoscopy with biopsies and dilation as indicated. Potential risks including bleeding and perforation were discussed, and the patient wishes to proceed. DETAILS OF THE PROCEDURE: The patient was taken to the operating room and placed in a left lateral decubitus position. IV sedation was administered, after which the upper GI endoscope was passed orally through the length of the esophagus and into the gastric pouch, from there through the gastrojejunostomy roughly 20 cm into the Raul limb. Overall the exam was grossly normal. There was no inflammation or narrowing of the esophagus, and the esophagogastric junction likewise was without inflammation. The pouch was normally sized without significant inflammation, the gastrojejunostomy was widely patent, and the Raul limb roughly 20 cm distal to the gastrojejunostomy was evaluated and found to be normal as well. No retained food or fluid was noted. There was no bile or other backup of GI contents suggestive of any bowel obstruction. Biopsies were then obtained from the gastric pouch, sent for CLOtest for H. pylori. Minimal bleeding from the biopsy sites was seen, and the procedure then concluded. The patient was taken to the recovery room in satisfactory condition. PLAN: The plan will be to empirically give the patient a Xylocaine/Mylanta mix prior to eating to see if that helps in the event that she is having some acid-mediated discomfort that is otherwise not causing any gross mucosal change. Also I will obtain a CCK-stimulated HIDA scan to further rule out there being a gallbladder problem. The scan will be performed tomorrow. Sammy Brown MD /[id number]
== END 2017-06-18 12:30 | disposition home or self-care (01) | DRG 418 ==
LOC: JP.ED 01:12 → JP.MS 04:30 → OBSVTOIN 08:55 → JP.2SS 06-16 13:15
PROVIDERS: ADMIT Surgery; ATTEND Surgery
DX: K82.8 Other specified diseases of gallbladder (principal); K80.00 Calculus of gallbladder with acute cholecystitis without obstruction; K42.0 Umbilical hernia with obstruction, without gangrene; Z87.11 Personal history of peptic ulcer disease; Z98.84 Bariatric surgery status; R10.13 Epigastric pain; Z98.0 Intestinal bypass and anastomosis status; F17.210 Nicotine dependence, cigarettes, uncomplicated; E28.2 Polycystic ovarian syndrome; G43.909 Migraine, unspecified, not intractable, without status migrainosus; R13.10 Dysphagia, unspecified; R85.5 Abnormal microbiological findings in specimens from digestive organs and abdominal cavity
CPT/HCPCS: 36415; 43235; 74177; 80053; 81001; 83605; 83690; 84484; 85025; 87081; 96361; 96374; 96375; 96376; 99285; C9113; J1170 ×2; J2250; J2405 ×2; J2704; J3010; J7030; J7120 ×2; 78227; 78227-26; 83735; 84100; 85027; 87070; 87075; 87088; 87186; 87205; 88304; 94762; 99284; A9270-GY; J0330; J0694; J1100; J1885; J2710; J2765; J3410; J3420; J3490; J7042; J7050

== ENCOUNTER 2017-11-15 10:38 | Emergency (ER) | payer MEDICARE, MEDICAID ==
[2017-11-15] MEDS ORDERED: Ketorolac 60 MG/2 ML SDV IM ONE (11:01)
[2017-11-15] MEDS ORDERED: Ondansetron 4 MG Tab.DIS PO ONE (11:04)
--- NOTE | 2017-11-15 11:07 | EDM.PDOC ---
ED HPI GENERAL MEDICAL PROBLEM - General Chief Complaint: Genitourinary Problem Stated Complaint: RT SIDE BACK PAIN Time Seen by Provider: 11/15/17 11:01 Source of Information: Reports: Patient, Family, RN Notes Reviewed History Limitations: Reports: No Limitations - History of Present Illness INITIAL COMMENTS - FREE TEXT/NARRATIVE: 32-year-old female presents to the emergency department day complaint of right flank pain, she states started early this morning she does have a history of nephrolithiasis she's feels this feels very similar as past experiences she is nauseated did try Dilaudid for pain without any relief Right Flank Pain Score (Numeric/FACES): 9 - Related Data Allergies Allergy/AdvReac Type Severity Reaction Status Date / Time No Known Allergies Allergy Verified 12/12/16 10:23 Home Meds: Home Meds SUMAtriptan [Imitrex] 50 mg PO ASDIRECTED PRN 12/05/14 [History] Cyanocobalamin (Vitamin B-12) [Vitamin B-12] 1,000 mcg SL DAILY 11/16/16 [ History] Pediatric Multivit #17/Iron [Children's Chewables] 1 tab PO BID 11/16/16 [ History] Acetaminophen [Tylenol Jr. Meltaways] 640 mg PO Q6H PRN #100 tab.dis 11/22/16 [ Rx] Magnesium Hydroxide [Milk of Magnesia] 30 ml PO DAILY PRN #2 ml 11/22/16 [Rx] Ondansetron [Zofran ODT] 4 mg PO Q4HR PRN #30 tab.dis 11/22/16 [Rx] Acetaminophen/oxyCODONE [Percocet 325-5 MG] 1 - 2 each PO Q4H PRN #40 tab [Rx] Cyclobenzaprine [Flexeril] 10 mg PO Q8H PRN #25 tab 06/18/17 [Rx] Pantoprazole Sodium [Protonix] 40 mg PO DAILY #30 tablet. 06/18/17 [Rx] Past Medical History HEENT History: Reports: Otitis Media Cardiovascular History: Reports: Arrhythmia Other Cardiovascular History: Palpatations Gastrointestinal History: Reports: Cholelithiasis, Irritable Bowel Syndrome Genitourinary History: Reports: Renal Calculus [employer]PLICATION [employer]IN[employer] History: Reports: Polycystic Ovaries, Musculoskeletal History: Reports: Other (See Below) Other Musculoskeletal History: Sciatica nerve pain. Plantar fasciitias Neurological History: Reports: Concussion, Migraines Psychiatric History: Reports: Anxiety, Depression Endocrine/Metabolic History: Reports: Obesity/BMI 30+ Hematologic History: Reports: Iron Deficiency Dermatologic History: Reports: None - Infectious Disease History Infectious Disease History: Reports: Chicken Pox - Past Surgical History HEENT Surgical History: Reports: None Cardiovascular Surgical History: Reports: None Respiratory Surgical History: Reports: None GI Surgical History: Reports: Bariatric Procedure, Cholecystectomy, Hernia, Inguinal Female Surgical History: Reports: Kidney stone extraction, Lithotripsy/ESWL Endocrine Surgical History: Reports: None Neurological Surgical History: Reports: None Musculoskeletal Surgical History: Reports: None Social & Family History - Family History Family Medical History: Noncontributory HEENT: Reports: None Cardiac: Reports: Hypertension Respiratory: Reports: Asthma, COPD, Sleep Apnea GI: Reports: GERD, Irritable Bowel Syndrome - Tobacco Use Smoking Status *Q: Current Every Day Smoker Years of Tobacco use: 4 Packs/Tins Daily: 0.5 Used Tobacco, but Quit: No Month Tobacco Last Used: 6 Second Hand Smoke Exposure: No - Caffeine Use Caffeine Use: Reports: Coffee Other Caffeine Use: 1 q week - Alcohol Use Days Per Week of Alcohol Use: 1 Number of Drinks Per Day: 0 Total Drinks Per Week: 0 - Recreational Drug Use Recreational Drug Use: No ED ROS GENERAL - Review of Systems Review Of Systems: See Below Constitutional: Denies: Fever, Chills HEENT: Reports: No Symptoms Respiratory: Reports: No Symptoms Cardiovascular: Reports: No Symptoms GI/Abdominal: Reports: Abdominal Pain, Nausea. Denies: Vomiting : Reports: Flank Pain ED EXAM, RENAL/ - Physical Exam Exam: See Below Exam Limited By: No Limitations General Appearance: Alert, WD/WN, Mild Distress Respiratory/Chest: No Respiratory Distress, Lungs Clear, Normal Breath Sounds, No Accessory Muscle Use Cardiovascular: Regular Rate, Rhythm, No Murmur GI/Abdominal: Soft, Tender (Right flank area) Course - Vital Signs Last Recorded V/S: Last Vital Signs Temp 97.2 F 11/15/17 10:57 Pulse 55 L 11/15/17 13:37 Resp 15 11/15/17 13:37 BP 111/58 L 11/15/17 13:37 Pulse Ox 98 11/15/17 13:37 - Orders/Labs/Meds Orders: Active Orders 24 hr Category Date Time Status CULTURE URINE [RM] Urgent Lab 11/15/17 13:38 Ordered Labs: Laboratory Tests 11/15/17 Range/Units 11:04 Urine Color Yellow Urine Appearance Cloudy Urine pH 5.0 (4.5-8.0) Ur Specific [place] 1.025 (1.008-1.030) Urine Protein Trace (NEGATIVE) mg/dL Urine Glucose (UA) Normal (NEGATIVE) mg/dL Urine Ketones Negative (NEGATIVE) mg/dL Urine Occult Blood Large (NEGATIVE) Urine Nitrite Negative (NEGATIVE) Urine Bilirubin Small (NEGATIVE) Urine Urobilinogen 1 (NORMAL) mg/dL Ur Leukocyte Esterase Small (NEGATIVE) Urine RBC Semi-packed H (0-5) Urine WBC 5-10 H (0-5) Ur Epithelial Cells Moderate Amorphous Sediment Not seen Urine Bacteria Moderate Urine Mucus Few Meds: Medications Discontinued Medications Generic Name Dose Route Start Last Admin Trade Name Freq PRN Reason Stop Dose Admin Hydromorphone HCl 1 mg 11/15/17 11:41 11/15/17 12:16 Dilaudid IVPUSH 11/15/17 11:42 1 mg ONETIME ONE Administration Ketorolac Tromethamine 60 mg 11/15/17 11:01 11/15/17 11:05 Toradol IM 11/15/17 11:02 60 mg ONETIME ONE Administration Ondansetron HCl 4 mg 11/15/17 11:04 11/15/17 11:09 Zofran Odt PO 11/15/17 11:05 4 mg ONETIME ONE Administration Ondansetron HCl 4 mg 11/15/17 13:18 11/15/17 13:27 Zofran IVPUSH 11/15/17 13:19 4 mg ONETIME ONE Administration Prochlorperazine Edisylate 5 mg 11/15/17 11:41 11/15/17 12:17 Compazine IVPUSH 11/15/17 11:42 Not Given ONETIME ONE Departure - Departure Time of Disposition: 14:04 Disposition: Home, Self-Care 01 Condition: Fair Clinical Impression: Kidney stone - Discharge Information Referrals: PCP,None [Primary Care Provider] - Forms: ED Department Discharge Additional Instructions: Use Dilaudid as needed for pain control, use Zofran as needed for nausea and vomiting symptoms, please report to urology's office in [place] at 9 AM on November 17, call return to the emergency department worsening of symptoms - My Orders Last 24 Hours: My Active Orders 11/15/17 13:38 CULTURE URINE [RM] Urgent - Assessment/Plan Last 24 Hours: My Active Orders 11/15/17 13:38 CULTURE URINE [RM] Urgent Plan: Assessment Acuity = acute Site and laterality = 6 mm nephrolithiasis right proximal ureter Etiology = unclear etiology Manifestations = pain, nausea Location of injury = Home Lab values = urinalysis reveals 5-10 WBCs consistent pyuria and packed rbc's consists with hematuria, cultures pending, CT scan describes the kidney stone above Plan Called and discussed the case with Dr. Torres urology at [facility] she has appointment with him 9 AM for possible lithotripsy on Tuesday prescription written for hydromorphone 2 mg by mouth every 3 hours when necessary total number #20, also Zofran 4 mg ODT 1 tab by mouth 3 times a day total #10. This note was dictated using [employer] voice recognition software please call with any questions on syntax or melida.
[2017-11-15] MEDS ORDERED: Prochlorperazine 10 MG/2 ML SDV IVPUSH ONE (11:41)
[2017-11-15] MEDS ORDERED: HYDROmorphone 1 MG/ML Syringe IVPUSH ONE (11:41)
--- NOTE | 2017-11-15 11:51 | CT ---
CT abdomen and pelvis Total DLP 4973. Indication: Right flank pain. Comparison: 12/12/2016 Findings: Lung bases are clear. Liver within normal limits. Prior cholecystectomy change. Spleen appe ars stable with mild splenomegaly.. Bilateral adrenal glands are unremarkable. Pancreas within normal limits. No hydronephrosis on the left. No obstructing stone. Medullary calcinosis left kidney. Mild- moderate hydronephrosis right kidney with an obstructing 6 mm stone within the right proximal ureter. Fat stranding about the right kidney. No evidence for bladder stones. Bladder is decompressed. Medullary nephrocalcinosis about the right kidney is greater than that of the left with macroscopic n onobstructing stones as well. Within the right renal sinus superiorly there is an unchanged 5.2 cm tr ansverse x 2.5 cm AP mass entirely composed of fat which insinuates upon the left-sided collecting sy stem. No dilated loops of large or small bowel. Normal appendix right lower quadrant. Multiple follic les within the ovaries. Impression: 1. Mild-moderate right-sided hydronephrosis with obstructing 6 mm stone within the right proximal ure ter. 2. Redemonstration of medullary nephrocalcinosis with macroscopic calcifications right kidney greater than left. 3. Unchanged fatty mass at the right renal pelvis superiorly insinuating itself about the left collec ting system. Findings could indicate a lipoma. Angiomyolipoma is possible as well.
[2017-11-15] MEDS ORDERED: Ondansetron 4 MG/2 ML SDV IVPUSH ONE (13:18)
[2017-11-15 13:38] VITALS: BP 111/58
== END 2017-11-15 14:30 | disposition home or self-care (01) ==
LOC: JP.ED 10:38
DX: N13.2 Hydronephrosis with renal and ureteral calculous obstruction (principal); F32.9 Major depressive disorder, single episode, unspecified; F17.210 Nicotine dependence, cigarettes, uncomplicated; Z79.899 Other long term (current) drug therapy
CPT/HCPCS: 74176; 81001; 87086; 96372; 96374; 96375; 99284; A9270; J1170; J1885; J2405; 99283

== ENCOUNTER 2018-03-04 09:01 | Emergency (ER) | payer MEDICARE, MEDICAID ==
[2018-03-04 09:27] VITALS: BP 115/65
[2018-03-04] MEDS ORDERED: Pantoprazole 40 MG Vial IVPUSH SCH (10:15)
[2018-03-04] MEDS ORDERED: Sodium Chloride 0.9% 1,000 ML IV SCH (10:15)
[2018-03-04] MEDS ORDERED: Alum Hydrox/Mag Hydrox/Simeth 15 ML, Lidocaine 2% 15 ML PO ONE ×2 (10:16)
--- NOTE | 2018-03-04 10:19 | EDM.PDOC ---
ED HPI GENERAL MEDICAL PROBLEM - General Chief Complaint: Abdominal Pain Stated Complaint: severe stomach pain Time Seen by Provider: 03/04/18 10:16 Source of Information: Reports: Patient History Limitations: Reports: No Limitations - History of Present Illness INITIAL COMMENTS - FREE TEXT/NARRATIVE: pt has pain in the upper abdoman. She woke up this am with severe pain in the epigastric area. She did not vomit. She is post RNY. Onset: Other ( during the nite. ) Duration: Hour(s): Location: Reports: Abdomen Associated Symptoms: Reports: No Other Symptoms - Related Data Allergies Allergy/AdvReac Type Severity Reaction Status Date / Time No Known Allergies Allergy Verified 12/12/16 10:23 Home Meds: Home Meds SUMAtriptan [Imitrex] 50 mg PO ASDIRECTED PRN 12/05/14 [History] Cyanocobalamin (Vitamin B-12) [Vitamin B-12] 1,000 mcg SL DAILY 11/16/16 [ History] Pediatric Multivit #17/Iron [Children's Chewables] 1 tab PO BID 11/16/16 [ History] Acetaminophen [Tylenol Jr. Meltaways] 640 mg PO Q6H PRN #100 tab.dis 11/22/16 [ Rx] Magnesium Hydroxide [Milk of Magnesia] 30 ml PO DAILY PRN #2 ml 11/22/16 [Rx] Ondansetron [Zofran ODT] 4 mg PO Q4HR PRN #30 tab.dis 11/22/16 [Rx] Cyclobenzaprine [Flexeril] 10 mg PO Q8H PRN #25 tab 06/18/17 [Rx] Cholecalciferol (Vitamin D3) [Vitamin D3] 1 ml PO DAILY 03/04/18 [History] #103/Iron Fumarate/Fa [ ] 1 tab PO DAILY 03/04/18 [ History] Vit B2/Niacin/B-6/B-12/D-Panth [B Complex Sublingual] 1 ml PO DAILY 03/04/18 [ History] Past Medical History HEENT History: Reports: Otitis Media Cardiovascular History: Reports: Arrhythmia Other Cardiovascular History: Palpatations Respiratory History: Reports: None Gastrointestinal History: Reports: Cholelithiasis, Irritable Bowel Syndrome Genitourinary History: Reports: Renal Calculus [employer] History: Reports: Polycystic Ovaries, Musculoskeletal History: Reports: Other (See Below) Other Musculoskeletal History: Sciatica nerve pain. Plantar fasciitias Neurological History: Reports: Concussion, Migraines Psychiatric History: Reports: Anxiety, Depression Endocrine/Metabolic History: Reports: Obesity/BMI 30+ Hematologic History: Reports: Iron Deficiency Dermatologic History: Reports: None - Infectious Disease History Infectious Disease History: Reports: Chicken Pox - Past Surgical History HEENT Surgical History: Reports: None Cardiovascular Surgical History: Reports: None Respiratory Surgical History: Reports: None GI Surgical History: Reports: Bariatric Procedure, Cholecystectomy, Hernia, Inguinal Female Surgical History: Reports: Kidney stone extraction, Lithotripsy/ESWL Endocrine Surgical History: Reports: None Neurological Surgical History: Reports: None Musculoskeletal Surgical History: Reports: None Social & Family History - Family History Family Medical History: Noncontributory HEENT: Reports: None Cardiac: Reports: Hypertension Respiratory: Reports: Asthma, COPD, Sleep Apnea GI: Reports: GERD, Irritable Bowel Syndrome - Tobacco Use Smoking Status *Q: Former Smoker Years of Tobacco use: 10 Packs/Tins Daily: 0.5 Used Tobacco, but Quit: Yes Month/Year Tobacco Last Used: 02/02 - Caffeine Use Caffeine Use: Reports: Coffee Other Caffeine Use: 1 q week - Recreational Drug Use Recreational Drug Use: No ED ROS GENERAL - Review of Systems Review Of Systems: See Below Constitutional: Reports: No Symptoms HEENT: Reports: No Symptoms Respiratory: Reports: No Symptoms Cardiovascular: Reports: No Symptoms Endocrine: Reports: No Symptoms GI/Abdominal: Reports: Abdominal Pain, Nausea : Reports: No Symptoms Musculoskeletal: Reports: No Symptoms Skin: Reports: No Symptoms ED EXAM, GI/ABD - Physical Exam Exam: See Below Text/Narrative:: pt woke up with severe pain in the epigastric area. She has had a ulcer problem in the past. She is post RNY Exam Limited By: No Limitations General Appearance: Alert, Moderate Distress Ears: Normal TMs Nose: Normal Inspection Throat/Mouth: Normal Inspection Head: Atraumatic Neck: Normal Inspection Respiratory/Chest: No Respiratory Distress Cardiovascular: Regular Rate, Rhythm GI/Abdominal Exam: Other (mild epigastric tenderness) (Female) Exam: Deferred Rectal (Female) Exam: Deferred Back Exam: Normal Inspection Extremities: Normal Inspection Course - Vital Signs Last Recorded V/S: Last Vital Signs Temp 36.4 C 03/04/18 10:09 Pulse 64 03/04/18 10:09 Resp 17 03/04/18 10:09 BP 115/65 03/04/18 10:09 Pulse Ox 100 03/04/18 10:09 - Orders/Labs/Meds Orders: Active Orders 24 hr Category Date Time Status UA W/MICROSCOPIC [URIN] Urgent Lab 03/04/18 10:14 Ordered Pantoprazole [ProTONIX IV] Med 03/04/18 10:15 Active 80 mg IVPUSH .BOLUS Sodium Chloride 0.9% [Normal Saline] 1,000 ml Med 03/04/18 10:15 Active IV ASDIRECTED Medication Orders Sodium Chloride (Normal Saline) 1,000 mls @ 999 mls/hr IV ASDIRECTED CRISTAL Last Admin: 03/04/18 10:36 Dose: 999 mls/hr Pantoprazole Sodium (Protonix Iv) 80 mg IVPUSH .BOLUS CRISTAL Last Admin: 03/04/18 10:55 Dose: 80 mg Labs: Laboratory Tests 03/04/18 03/04/18 03/04/18 Range/Units 10:15 10:15 10:15 WBC 5.2 (4.5-11.0) K/uL RBC 3.94 (3.30-5.50) M/uL Hgb 11.2 L (12.0-15.0) g/dL Hct 33.3 L (36.0-48.0) % MCV 85 (80-98) fL MCH 28 (27-31) pg MCHC 34 (32-36) % Plt Count 232 (150-400) K/uL Neut % (Auto) 69 H (36-66) % Lymph % (Auto) 25 (24-44) % [place] % (Auto) 4 (2-6) % Eos % (Auto) 2 (2-4) % Baso % (Auto) 0 (0-1) % Sodium 138 L (140-148) mmol/L Potassium 3.6 (3.6-5.2) mmol/L Chloride 105 (100-108) mmol/L Carbon Dioxide 23 (21-32) mmol/L Anion Gap 13.6 (5.0-14.0) mmol/L BUN 14 (7-18) mg/dL Creatinine 0.6 (0.6-1.0) mg/dL Est Cr Clr Drug Dosing 121.13 mL/min Estimated GFR (MDRD) > 60 (>60) Glucose 83 (74-106) mg/dL Calcium 8.0 L (8.5-10.1) mg/dL Total Bilirubin 0.7 (0.2-1.0) mg/dL AST 14 L (15-37) U/L ALT 19 (12-78) U/L Alkaline Phosphatase 79 (46-116) U/L Total Protein 6.0 L (6.4-8.2) g/dL Albumin 3.0 L (3.4-5.0) g/dL Globulin 3.0 (2.3-3.5) g/dL Albumin/Globulin Ratio 1.0 L (1.2-2.2) Lipase 67 L (73-393) U/L Meds: Medications Generic Name Dose Route Start Last Admin Trade Name Freq PRN Reason Stop Dose Admin Sodium Chloride 1,000 mls @ 999 mls/hr 03/04/18 10:15 03/04/18 10:36 Normal Saline IV 999 mls/hr ASDIRECTED CRISTAL Administration Pantoprazole Sodium 80 mg 03/04/18 10:15 03/04/18 10:55 Protonix Iv IVPUSH 80 mg .BOLUS CRISTAL Administration Discontinued Medications Generic Name Dose Route Start Last Admin Trade Name Freq PRN Reason Stop Dose Admin Al Hydroxide/Mg Hydroxide 15 0 ml 03/04/18 10:16 03/04/18 10:25 ml/ Lidocaine HCl 15 ml PO 03/04/18 10:17 15 ml ONETIME ONE Administration - Re-Assessments/Exams Free Text/Narrative Re-Assessment/Exam: 03/04/18 11:50 Pt was given a GI cocktail and had good relief of her pain. Her pain is down to a 1 at this time. Her lab work looks good. Departure - Departure Time of Disposition: 11:51 Disposition: Home, Self-Care 01 Condition: Fair Clinical Impression: Gastrointestinal irritation, Gastric bypass status for obesity - Discharge Information Referrals: PCP,None [Primary Care Provider] - Forms: ED Department Discharge Care Plan Goals: protonix 20mg bid\ for the next 3 days then daily, schedule gastro with Dr Palma\ th - My Orders Last 24 Hours: My Active Orders 03/04/18 10:14 UA W/MICROSCOPIC [URIN] Urgent 03/04/18 10:15 Pantoprazole [ProTONIX IV] 80 mg IVPUSH .BOLUS Sodium Chloride 0.9% [Normal Saline] 1,000 ml IV ASDIRECTED - Assessment/Plan Last 24 Hours: My Active Orders 03/04/18 10:14 UA W/MICROSCOPIC [URIN] Urgent 03/04/18 10:15 Pantoprazole [ProTONIX IV] 80 mg IVPUSH .BOLUS Sodium Chloride 0.9% [Normal Saline] 1,000 ml IV ASDIRECTED
== END 2018-03-04 12:21 | disposition home or self-care (01) ==
LOC: JP.ED 09:01
DX: K31.89 Other diseases of stomach and duodenum (principal); Z98.84 Bariatric surgery status; Z79.899 Other long term (current) drug therapy; Z87.442 Personal history of urinary calculi; E66.9 Obesity, unspecified; Z68.30 Body mass index [BMI] 30.0-30.9, adult
CPT/HCPCS: 36415; 80053; 81001; 83690; 85025; 96361; 96374; 99284; A9270; C9113; J7030

== ENCOUNTER 2019-10-03 17:30 | Emergency (ER) | payer MEDICARE, MEDICAID ==
[2019-10-03 17:46] VITALS: BP 129/80; PULSE 74
--- NOTE | 2019-10-03 18:23 | EDM.PDOC ---
ED HPI GENERAL MEDICAL PROBLEM - General Chief Complaint: Gastrointestinal Problem Stated Complaint: ABD PAIN Time Seen by Provider: 10/03/19 18:53 Source of Information: Reports: Patient History Limitations: Reports: No Limitations - History of Present Illness INITIAL COMMENTS - FREE TEXT/NARRATIVE: 34 years old female patient with history of pediatric surgery, peptic ulcer, status post cholecystectomy resented to the ER with chief complaint of epigastric pain started after she had lunch today. Progressively getting worse. Vomited twice. Feeling slightly nauseated now. Denies any cough or fever. Denies any chest pain shortness breath. Pain burning-like sensation feeling like when she had her peptic ulcer before. No radiation. Nothing makes it better or worse. Denies any diarrhea or constipation. Denies any urinary symptom. Lower Abdomen Pain Score (Numeric/FACES): 9 - Related Data Allergies Allergy/AdvReac Type Severity Reaction Status Date / Time No Known Allergies Allergy Verified 10/03/19 17:49 Home Meds: Home Meds SUMAtriptan [Imitrex] 50 mg PO ASDIRECTED PRN 12/05/14 [History] Cyanocobalamin (Vitamin B-12) [Vitamin B-12] 1,000 mcg SL DAILY 11/16/16 [ History] Acetaminophen [Tylenol Jr. Meltaways] 640 mg PO Q6H PRN #100 tab.dis 11/22/16 [ Rx] Ondansetron [Zofran ODT] 4 mg PO Q4HR PRN #30 tab.dis 11/22/16 [Rx] Cyclobenzaprine [Flexeril] 10 mg PO Q8H PRN #25 tab 06/18/17 [Rx] Cholecalciferol (Vitamin D3) [Vitamin D3] 1 ml PO DAILY 03/04/18 [History] Vit B2/Niacin/B-6/B-12/D-Panth [B Complex Sublingual] 1 ml PO DAILY 03/04/18 [ History] Lactobacillus Rhamnosus R0011 [Probiotic Digestive Care] 1 cap PO BID 03/10/18 [ History] Nystatin [Nystatin Crm] 1 applic TOP BID 03/10/18 [History] Omeprazole Magnesium [Prilosec Otc] 40 mg PO DAILY 03/10/18 [History] Past Medical History HEENT History: Reports: Otitis Media Cardiovascular History: Reports: Arrhythmia Other Cardiovascular History: Palpatations Respiratory History: Reports: None Gastrointestinal History: Reports: Cholelithiasis, Irritable Bowel Syndrome Genitourinary History: Reports: Renal Calculus 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 Plantar fasciitias Neurological History: Reports: Concussion, Migraines Psychiatric History: Reports: Anxiety, Depression Endocrine/Metabolic History: Reports: Obesity/BMI 30+ Hematologic History: Reports: Iron Deficiency Dermatologic History: Reports: None - Infectious Disease History Infectious Disease History: Reports: Chicken Pox - Past Surgical History Head Surgeries/Procedures: Reports: None HEENT Surgical History: Reports: None Cardiovascular Surgical History: Reports: None Respiratory Surgical History: Reports: None GI Surgical History: Reports: Bariatric Procedure, Cholecystectomy, Hernia, Inguinal Other GI Surgeries/Procedures: bariatric procedure 11/2016 Female Surgical History: Reports: Kidney stone extraction, Lithotripsy/ESWL Endocrine Surgical History: Reports: None Neurological Surgical History: Reports: None Musculoskeletal Surgical History: Reports: None Dermatological Surgical History: Reports: None Social & Family History - Family History Family Medical History: Noncontributory HEENT: Reports: None Cardiac: Reports: Hypertension Respiratory: Reports: Asthma, COPD, Sleep Apnea GI: Reports: GERD, Irritable Bowel Syndrome - Tobacco Use Smoking Status *Q: Former Smoker Used Tobacco, but Quit: Yes Month/Year Tobacco Last Used: 2016 Second Hand Smoke Exposure: No - Caffeine Use Caffeine Use: Reports: Coffee Other Caffeine Use: 1 q week - Recreational Drug Use Recreational Drug Use: No ED ROS GENERAL - Review of Systems Review Of Systems: Comprehensive ROS is negative, except as noted in HPI. ED EXAM, GI/ABD - Physical Exam Exam: See Below Exam Limited By: No Limitations General Appearance: Alert, WD/WN, No Apparent Distress Eyes: Bilateral: EOMI Nose: Normal Inspection, Normal Mucosa, No Blood Throat/Mouth: Normal Inspection, Normal Lips, Normal Teeth, Normal Gums, Normal Oropharynx, Normal Voice, No Airway Compromise Head: Atraumatic, Normocephalic Neck: Normal Inspection, Supple, Non-Tender, Full Range of Motion Respiratory/Chest: No Respiratory Distress, Lungs Clear, Normal Breath Sounds, No Accessory Muscle Use, Chest Non-Tender Cardiovascular: Normal Peripheral Pulses, Regular Rate, Rhythm, No Edema, No Gallop, No JVD, No Murmur, No Rub GI/Abdominal Exam: Normal Bowel Sounds, Soft, Tender, Other (Be gastric tenderness. No guarding no rebound.). No: Guarding, Rebound Extremities: Normal Inspection, Normal Range of Motion, Non-Tender, Normal Capillary Refill, No Pedal Edema Neurological: Alert, Oriented, CN II-XII Intact, Normal Cognition, Normal Gait, Normal Reflexes, No Motor/Sensory Deficits Skin Exam: Warm, Dry, Intact, Normal Color, No Rash Course - Vital Signs Last Recorded V/S: Last Vital Signs Temp 35.3 C 10/03/19 17:53 Pulse 74 10/03/19 17:53 Resp 18 10/03/19 17:53 BP 129/80 10/03/19 17:53 Pulse Ox 99 10/03/19 17:53 - Orders/Labs/Meds Labs: Laboratory Tests 10/03/19 10/03/19 10/03/19 Range/Units 18:33 18:33 18:33 WBC 8.2 (4.5-11.0) K/uL RBC 4.39 (3.30-5.50) M/uL Hgb 12.4 (12.0-15.0) g/dL Hct 37.6 (36.0-48.0) % MCV 86 (80-98) fL MCH 28 (27-31) pg MCHC 33 (32-36) % Plt Count 337 (150-400) K/uL Neut % (Auto) 76 H (36-66) % Lymph % (Auto) 17 L (24-44) % [place] % (Auto) 4 (2-6) % Eos % (Auto) 3 (2-4) % Baso % (Auto) 1 (0-1) % Sodium 140 (140-148) mmol/L Potassium 3.6 (3.6-5.2) mmol/L Chloride 104 (100-108) mmol/L Carbon Dioxide 26 (21-32) mmol/L Anion Gap 10.1 (5.0-14.0) mmol/L BUN 12 (7-18) mg/dL Creatinine 0.7 (0.6-1.0) mg/dL Est Cr Clr Drug Dosing 102.86 mL/min Estimated GFR (MDRD) > 60 (>60) Glucose 88 (74-106) mg/dL Lactic Acid 0.9 (0.4-2.0) mmol/L Calcium 8.2 L (8.5-10.1) mg/dL Total Bilirubin 0.5 (0.2-1.0) mg/dL AST 21 (15-37) U/L ALT 36 D (12-78) U/L Alkaline Phosphatase 141 H D (46-116) U/L C-Reactive Protein 0.08 (0.0-0.3) mg/dL Total Protein 7.0 (6.4-8.2) g/dL Albumin 3.9 (3.4-5.0) g/dL Globulin 3.1 (2.3-3.5) g/dL Albumin/Globulin Ratio 1.3 (1.2-2.2) Lipase 121 (73-393) U/L Urine Color (YELLOW) Urine Appearance (CLEAR) Urine pH (5.0-8.0) Ur Specific [place] (1.008-1.030) Urine Protein (NEGATIVE) mg/dL Urine Glucose (UA) (NEGATIVE) mg/dL Urine Ketones (NEGATIVE) mg/dL Urine Occult Blood (NEGATIVE) Urine Nitrite (NEGATIVE) Urine Bilirubin (NEGATIVE) Urine Urobilinogen (0.2-1.0) EU/dL Ur Leukocyte Esterase (NEGATIVE) Urine RBC (0-5) Urine WBC (0-5) Ur Epithelial Cells Amorphous Sediment Urine Bacteria Urine Mucus Urine HCG, Qual 10/03/19 10/03/19 Range/Units 18:50 18:50 WBC (4.5-11.0) K/uL RBC (3.30-5.50) M/uL Hgb (12.0-15.0) g/dL Hct (36.0-48.0) % MCV (80-98) fL MCH (27-31) pg MCHC (32-36) % Plt Count (150-400) K/uL Neut % (Auto) (36-66) % Lymph % (Auto) (24-44) % [place] % (Auto) (2-6) % Eos % (Auto) (2-4) % Baso % (Auto) (0-1) % Sodium (140-148) mmol/L Potassium (3.6-5.2) mmol/L Chloride (100-108) mmol/L Carbon Dioxide (21-32) mmol/L Anion Gap (5.0-14.0) mmol/L BUN (7-18) mg/dL Creatinine (0.6-1.0) mg/dL Est Cr Clr Drug Dosing mL/min Estimated GFR (MDRD) (>60) Glucose (74-106) mg/dL Lactic Acid (0.4-2.0) mmol/L Calcium (8.5-10.1) mg/dL Total Bilirubin (0.2-1.0) mg/dL AST (15-37) U/L ALT (12-78) U/L Alkaline Phosphatase (46-116) U/L C-Reactive Protein (0.0-0.3) mg/dL Total Protein (6.4-8.2) g/dL Albumin (3.4-5.0) g/dL Globulin (2.3-3.5) g/dL Albumin/Globulin Ratio (1.2-2.2) Lipase (73-393) U/L Urine Color [place] A (YELLOW) Urine Appearance Clear (CLEAR) Urine pH 5.5 (5.0-8.0) Ur Specific [place] 1.025 (1.008-1.030) Urine Protein Negative (NEGATIVE) mg/dL Urine Glucose (UA) Negative (NEGATIVE) mg/dL Urine Ketones Negative (NEGATIVE) mg/dL Urine Occult Blood Moderate H (NEGATIVE) Urine Nitrite Negative (NEGATIVE) Urine Bilirubin Negative (NEGATIVE) Urine Urobilinogen 0.2 (0.2-1.0) EU/dL Ur Leukocyte Esterase Negative (NEGATIVE) Urine RBC 10-20 H (0-5) Urine WBC 0-5 (0-5) Ur Epithelial Cells Few Amorphous Sediment Few Urine Bacteria Not seen Urine Mucus Not seen Urine HCG, Qual Negative Meds: Medications Discontinued Medications Generic Name Dose Route Start Last Admin Trade Name Freq PRN Reason Stop Dose Admin Al Hydroxide/Mg Hydroxide 15 0 ml 10/03/19 18:25 10/03/19 18:40 ml/ Lidocaine HCl 15 ml PO 10/03/19 18:26 15 ml ONETIME ONE Administration Sodium Chloride 1,000 mls @ 999 mls/hr 10/03/19 18:56 10/03/19 19:28 Normal Saline IV 10/03/19 19:56 999 mls/hr .BOLUS STA Administration Ondansetron HCl 4 mg 10/03/19 18:25 10/03/19 18:40 Zofran IVPUSH 10/03/19 18:26 4 mg ONETIME ONE Administration - Re-Assessments/Exams Free Text/Narrative Re-Assessment/Exam: 10/03/19 18:56 Patient was seen and examined shortly after arrival. The stable. Given GI cocktail. Pain markedly improved after that. Almost resolved. Also given Zofran. Nausea improved. Also given 1 L normal saline bolus. Lab reviewed with the patient. No significant acute abnormalities. Again symptom almost completely resolved. Unclear etiology. Possible gastritis/peptic ulcer. Broad differential was considered including but not limited to gastritis, peptic ulcer , internal hernia, colitis, pancreatitis, pyelonephritis, acute appendicitis, etc. I did recommended doing CT abdomen and pelvis however the patient stated that her symptom almost resolved and declined CT abdomen and pelvis for now. Advised to come back if symptom comes back otherwise follow-up tomorrow for her primary doctor for reevaluation. Patient agrees with the plan. Stable for discharge. 10/03/19 20:10 Departure - Departure Time of Disposition: 20:08 Disposition: Home, Self-Care 01 Condition: Good Clinical Impression: Epigastric pain, Gastrointestinal irritation, Esophageal reflux - Discharge Information *PRESCRIPTION DRUG MONITORING PROGRAM REVIEWED*: Not Applicable *COPY OF PRESCRIPTION DRUG MONITORING REPORT IN PATIENT CRITSIAN: Not Applicable Instructions: Indigestion, [id number] Referrals: Vishnu Chris MD [Primary Care Provider] - Forms: ED Department Discharge Additional Instructions: Rest and stay well-hydrated Avoid NSAIDs, chocolate, spicy food Clear liquids tonight and then advance as tolerated Follow-up with your primary doctor tomorrow for reevaluation, and possibly schedule EGD as an outpatient Come back for any concern or any worsening symptom Sepsis Event Note - Evaluation Sepsis Screening Result: No Definite Risk - Focused Exam Vital Signs: Vital Signs Temp Pulse Resp BP Pulse Ox 10/03/19 17:53 35.3 C 74 18 129/80 99 10/03/19 17:44 35.3 C 74 18 129/80 99 Date Exam was Performed: 10/03/19 Time Exam was Performed: 20:07 - Assessment/Plan Plan: Rest and stay well-hydrated Avoid NSAIDs, chocolate, spicy food Clear liquids tonight and then advance as tolerated Follow-up with your primary doctor tomorrow for reevaluation, and possibly schedule EGD as an outpatient Come back for any concern or any worsening symptom
[2019-10-03] MEDS ORDERED: Alum Hydrox/Mag Hydrox/Simeth 15 ML, Lidocaine 2% 15 ML PO ONE ×4 (18:25→20:36)
[2019-10-03] MEDS ORDERED: Ondansetron 4 MG/2 ML SDV IVPUSH ONE (18:25)
[2019-10-03] MEDS ORDERED: Sodium Chloride 0.9% 1,000 ML IV STA (18:56)
== END 2019-10-03 20:56 | disposition home or self-care (01) ==
LOC: JP.ED 17:30
DX: K21.9 Gastro-esophageal reflux disease without esophagitis (principal); E66.9 Obesity, unspecified; Z90.49 Acquired absence of other specified parts of digestive tract; Z98.84 Bariatric surgery status; Z87.891 Personal history of nicotine dependence
CPT/HCPCS: 36415; 80053; 81001; 81025; 83605; 83690; 85025; 86140; 96361; 96374; 99284; A9270; J2405; J7030

== ENCOUNTER 2019-11-15 21:38 | Inpatient (IN) | payer MEDICARE, MEDICAID ==
[2019-11-15] MEDS ORDERED: Ondansetron 4 MG/2 ML SDV IVPUSH ONE (22:07)
[2019-11-15] MEDS ORDERED: Sodium Chloride 0.9% 10 ML Syringe FLUSH PRN (22:07)
[2019-11-15] MEDS ORDERED: HYDROmorphone 1 MG/ML Syringe IVPUSH ONE (22:08)
--- NOTE | 2019-11-15 22:16 | EDM.PDOC ---
ED HPI GENERAL MEDICAL PROBLEM - General Chief Complaint: Abdominal Pain Stated Complaint: STOMACH PAIN Time Seen by Provider: 11/15/19 22:05 Source of Information: Reports: Patient, Old Records, RN History Limitations: Reports: No Limitations - History of Present Illness INITIAL COMMENTS - FREE TEXT/NARRATIVE: 34 yo female here with abdominal pain progressive since about 3 pm today. Some nausea. Feels a little constipated. Has a pHx of gastric bypass per Dr. Brown in '17. Tried some OTC agents without relief today. Onset: Today Onset Date: 11/15/19 Onset Time: 15:00 Duration: Hour(s):, Getting Worse Location: Reports: Abdomen Quality: Reports: Ache Severity: Severe Improves with: Reports: None Worsens with: Reports: Other (time) Context: Reports: Other (see HPI) Associated Symptoms: Reports: Nausea/Vomiting. 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 Meltaways] 640 mg PO Q6H PRN #100 tab.dis 11/22/16 [ Rx] Ondansetron [Zofran ODT] 4 mg PO Q4HR PRN #30 tab.dis 11/22/16 [Rx] Cyclobenzaprine [Flexeril] 10 mg PO Q8H PRN #25 tab 06/18/17 [Rx] Cholecalciferol (Vitamin D3) [Vitamin D3] 1 ml PO DAILY 03/04/18 [History] Vit B2/Niacin/B-6/B-12/D-Panth [B Complex Sublingual] 1 ml PO DAILY 03/04/18 [ History] Lactobacillus Rhamnosus R0011 [Probiotic Digestive Care] 1 cap PO BID 03/10/18 [ History] Nystatin [Nystatin Crm] 1 applic TOP BID 03/10/18 [History] Omeprazole Magnesium [Prilosec Otc] 40 mg PO DAILY 03/10/18 [History] Past Medical History HEENT History: Reports: Otitis Media Cardiovascular History: Reports: Arrhythmia Other Cardiovascular History: Palpatations Respiratory History: Reports: None Gastrointestinal History: Reports: Cholelithiasis, Irritable Bowel Syndrome Genitourinary History: Reports: Renal Calculus 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 Plantar fasciitias Neurological History: Reports: Concussion, Migraines Psychiatric History: Reports: Anxiety, Depression Endocrine/Metabolic History: Reports: Obesity/BMI 30+ Hematologic History: Reports: Iron Deficiency Dermatologic History: Reports: None - Infectious Disease History Infectious Disease History: Reports: Chicken Pox - Past Surgical History Head Surgeries/Procedures: Reports: None HEENT Surgical History: Reports: None Cardiovascular Surgical History: Reports: None Respiratory Surgical History: Reports: None GI Surgical History: Reports: Bariatric Procedure, Cholecystectomy, Hernia, Inguinal Other GI Surgeries/Procedures: bariatric procedure 11/2016 Female Surgical History: Reports: Kidney stone extraction, Lithotripsy/ESWL Endocrine Surgical History: Reports: None Neurological Surgical History: Reports: None Musculoskeletal Surgical History: Reports: None Dermatological Surgical History: Reports: None Social & Family History - Family History Family Medical History: Noncontributory HEENT: Reports: None Cardiac: Reports: Hypertension Respiratory: Reports: Asthma, COPD, Sleep Apnea GI: Reports: GERD, Irritable Bowel Syndrome - Tobacco Use Smoking Status *Q: Never Smoker - Caffeine Use Caffeine Use: Reports: Coffee Other Caffeine Use: 1 q week - Recreational Drug Use Recreational Drug Use: No ED ROS GENERAL - Review of Systems Review Of Systems: See Below Constitutional: Reports: Decreased Appetite HEENT: Reports: No Symptoms Respiratory: Reports: No Symptoms Cardiovascular: Reports: No Symptoms GI/Abdominal: Reports: Abdominal Pain, Constipation, Decreased Appetite, Nausea , Vomiting. Denies: Black Stool, Bloody Stool, Diarrhea, Distension, Flatus, Hematemesis, Hematochezia, Melena : Reports: No Symptoms Musculoskeletal: Reports: No Symptoms Skin: Reports: No Symptoms Neurological: Reports: No Symptoms Psychiatric: Reports: No Symptoms ED EXAM, GI/ABD - Physical Exam Exam: See Below Exam Limited By: No Limitations General Appearance: Alert, WD/WN, Mild Distress Eyes: Bilateral: Normal Appearance Ears: Normal External Exam, Normal Canal, Hearing Grossly Normal, Normal TMs Nose: Normal Inspection, No Blood Throat/Mouth: Normal Inspection, Normal Lips, Normal Oropharynx, Normal Voice, No Airway Compromise Head: Atraumatic, Normocephalic Neck: Normal Inspection Respiratory/Chest: No Respiratory Distress, Lungs Clear, Normal Breath Sounds, No Accessory Muscle Use Cardiovascular: Regular Rate, Rhythm, No Edema GI/Abdominal Exam: Soft, No Distention, Tender (diffuse). No: Non-Tender, Distended, Guarding, Rigid, Rebound Back Exam: Normal Inspection. No: CVA Tenderness (R), CVA Tenderness (L) Extremities: Normal Inspection, Normal Range of Motion, Non-Tender, No Pedal Edema Neurological: Alert, Oriented, CN II-XII Intact, Normal Cognition, No Motor/ Sensory Deficits Psychiatric: Normal Affect, Normal Mood Skin Exam: Warm, Dry, Intact, Normal Color, No Rash Course - Vital Signs Text/Narrative:: Dr. Brown paged @ 2350h Last Recorded V/S: Last Vital Signs Temp 36.2 C 11/15/19 21:58 Pulse 78 11/15/19 21:58 Resp 22 H 11/15/19 21:58 BP 111/79 11/15/19 21:58 Pulse Ox 97 11/15/19 21:58 - Orders/Labs/Meds Orders: Active Orders 24 hr Category Date Time Status UA W/MICROSCOPIC [URIN] Stat Lab 11/15/19 22:07 Ordered NS + KCl 20mEq/L [Normal Saline with 20 mEq KCl] 1,000 Med 11/15/19 23:00 Active ml IV ASDIRECTED Sodium Chloride 0.9% [Saline Flush] Med 11/15/19 22:07 Active 10 ml FLUSH ASDIRECTED PRN Saline Lock Insert [OM.PC] Routine Oth 11/15/19 22:07 Ordered Medication Orders Potassium Chloride/Sodium Chloride (Normal Saline With 20 Meq Kcl) 1,000 mls @ 500 mls/hr IV ASDIRECTED CRISTAL Last Admin: 11/15/19 23:15 Dose: 500 mls/hr Sodium Chloride (Saline Flush) 10 ml FLUSH ASDIRECTED PRN PRN Reason: Keep Vein Open Last Admin: 11/15/19 22:16 Dose: 10 ml Labs: Laboratory Tests 11/15/19 11/15/19 Range/Units 22:13 22:13 WBC 8.7 (4.5-11.0) K/uL RBC 4.80 (3.30-5.50) M/uL Hgb 13.1 (12.0-15.0) g/dL Hct 41.0 (36.0-48.0) % MCV 85 (80-98) fL MCH 27 (27-31) pg MCHC 32 (32-36) % Plt Count 328 (150-400) K/uL Sodium 142 (140-148) mmol/L Potassium 3.3 L (3.6-5.2) mmol/L Chloride 105 (100-108) mmol/L Carbon Dioxide 24 (21-32) mmol/L Anion Gap 16.3 H (5.0-14.0) mmol/L BUN 11 (7-18) mg/dL Creatinine 0.7 (0.6-1.0) mg/dL Est Cr Clr Drug Dosing 102.86 mL/min Estimated GFR (MDRD) > 60 (>60) Glucose 99 (74-106) mg/dL Calcium 8.9 (8.5-10.1) mg/dL Lipase 100 (73-393) U/L Meds: Medications Generic Name Dose Route Start Last Admin Trade Name Freq PRN Reason Stop Dose Admin Potassium Chloride/Sodium Chloride 1,000 mls @ 500 mls/hr 11/15/19 23:00 23:15 Normal Saline With 20 Meq Kcl IV 500 mls/hr ASDIRECTED CRISTAL Administration Sodium Chloride 10 ml 11/15/19 22:07 11/15/19 22:16 Saline Flush FLUSH 10 ml ASDIRECTED PRN Administration Keep Vein Open Discontinued Medications Generic Name Dose Route Start Last Admin Trade Name Freq PRN Reason Stop Dose Admin Hydromorphone HCl 1 mg 11/15/19 22:08 11/15/19 22:16 Dilaudid IVPUSH 11/15/19 22:09 1 mg ONETIME ONE Administration Hydromorphone HCl 0.5 mg 11/15/19 23:17 11/15/19 23:27 Dilaudid IVPUSH 11/15/19 23:18 0.5 mg ONETIME ONE Administration Sodium Chloride 75 mls @ 3 mls/sec 11/15/19 22:54 11/15/19 23:04 Normal Saline IV 11/15/19 22:55 3 mls/sec ASDIRECTED STA Administration Iopamidol 100 ml 11/15/19 22:54 11/15/19 23:04 Isovue-300 (61%) IV 11/15/19 22:55 100 ml . DIRECTED STA Administration Ondansetron HCl 4 mg 11/15/19 22:07 11/15/19 22:16 Zofran IVPUSH 11/15/19 22:08 4 mg ONETIME ONE Administration - Radiology Interpretation Free Text/Narrative:: Abd/pelvis CT scan with IV contrast- Impression: 1. Findings concerning for small obstruction involving the Raul limb secondary to internal hernia. No evidence of bowel ischemia or perforation. 2. 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 3. Nonobstructing right renal stones measuring up to 14 mm. Please note that all CT scans at this facility use dose modulation, iterative reconstruction, and/or weight-based dosing when appropriate to reduce radiation dose to as low as reasonably achievable. Dictated by Mario Lloyd MD @ Nov 15 2019 11:28PM CT Results Date: 11/15/19 CT Results Time: 23:48 Departure - Departure Time of Disposition: 23:55 Disposition: Admitted As Inpatient 67 Condition: Fair Clinical Impression: SBO (small bowel obstruction), Internal hernia - Discharge Information *PRESCRIPTION DRUG MONITORING PROGRAM REVIEWED*: No *COPY OF PRESCRIPTION DRUG MONITORING REPORT IN PATIENT CRISTIAN: No Referrals: Vishnu Chris MD [Primary Care Provider] - Forms: ED Department Discharge Sepsis Event Note - Evaluation Sepsis Screening Result: No Definite Risk - Focused Exam Vital Signs: Vital Signs Temp Pulse Resp BP Pulse Ox 11/15/19 21:58 36.2 C 78 22 H 111/79 97 11/15/19 21:53 36.2 C 78 22 H 111/79 97 Date Exam was Performed: 11/15/19 Time Exam was Performed: 23:48 - My Orders Last 24 Hours: My Active Orders 11/15/19 22:07 UA W/MICROSCOPIC [URIN] Stat Sodium Chloride 0.9% [Saline Flush] 10 ml FLUSH ASDIRECTED PRN Saline Lock Insert [OM.PC] Routine 11/15/19 23:00 NS + KCl 20mEq/L [Normal Saline with 20 mEq KCl] 1,000 ml IV ASDIRECTED - Assessment/Plan Last 24 Hours: My Active Orders 11/15/19 22:07 UA W/MICROSCOPIC [URIN] Stat Sodium Chloride 0.9% [Saline Flush] 10 ml FLUSH ASDIRECTED PRN Saline Lock Insert [OM.PC] Routine 11/15/19 23:00 NS + KCl 20mEq/L [Normal Saline with 20 mEq KCl] 1,000 ml IV ASDIRECTED
[2019-11-15] MEDS ORDERED: Sodium Chloride 0.9% 75 ML IV STA (22:54)
[2019-11-15] MEDS ORDERED: Iopamidol 612 MG/ML 100 ML Bottle IV STA (22:54)
[2019-11-15] MEDS ORDERED: NS + KCl 20mEq/L 1,000 ML IV SCH (23:00)
[2019-11-15] MEDS ORDERED: HYDROmorphone 0.5 MG/0.5 ML Syringe IVPUSH ONE (23:17)
--- NOTE | 2019-11-15 23:47 | CRLCT ---
Indication: Abdominal pain, history of Raul-en-Y Technique: Contrast enhanced axial CT imaging through the abdomen and pelvis. 100 mL Isovue-300 contrast agent was administered intravenously. Sagittal and coronal reconstructions are provided. Comparison: CT abdomen pelvis without contrast 11/15/2017 Findings: There is no significant abnormality of the liver, spleen, pancreas, and adrenal glands. Cholecystectomy clips are noted. The portal vein and IVC are patent. There is normal caliber of the abdominal aorta. There is no abdominal lymphadenopathy. Again demonstrated is renal medullary nephrocalcinosis, more pronounced on the right. There also few nonobstructing stone in the right collecting system, largest measuring 14 mm in the upper pole and 8 mm in the lower pole. There is stable appearance of prominent fat density focus in the superior aspect of the right renal hilum, likely a lipoma. No renal stones are seen on the left. 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 There are a few mildly distended small bowel loops relating to the Ralu limb, measuring up to 4 cm. Transition point is seen near the jejunojejunal anastomosis. (coronal images 31-34). There is twisting of the mesentery at the transition point, raising concern for internal hernia. There is no bowel wall thickening or pneumatosis. There is no pneumoperitoneum. The appendix is noninflamed. There is no colonic wall thickening. The visualized osseous structures are unremarkable. The included lung bases are clear. Impression: 1. Findings concerning for small obstruction involving the Raul limb secondary to internal hernia. No evidence of bowel ischemia or perforation. 2. 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 3. Nonobstructing right renal stones measuring up to 14 mm. Please note that all CT scans at this facility use dose modulation, iterative reconstruction, and/or weight-based dosing when appropriate to reduce radiation dose to as low as reasonably achievable. Dictated by Mario Lloyd MD @ Nov 15 2019 11:28PM Signed by Dr. Mario Lloyd @ Nov 15 2019 11:46PM
[2019-11-15] MEDS ORDERED: HYDROmorphone/Normal Saline 15 MG/30 ML PCA IV PRN (23:55)
[2019-11-16] MEDS: Dextrose 5%-Lactated Ringers 1,000 ML IV SCH ×4 (01:02→12:41)
[2019-11-16] MEDS: Ondansetron 4 MG/2 ML SDV IVPUSH PRN ×3 (02:41→11:59)
[2019-11-16] MEDS ORDERED: Naloxone 0.4 MG/ML SDV IV PRN (07:11)
[2019-11-16] MEDS ORDERED: Ketamine 500 MG/5 ML MDV IV SCH ×3 (07:45→12:00)
[2019-11-16] MEDS ORDERED: Bupivacaine 0.5%/EPINEPHrine 1:200,000 50 ML MDV ONE (08:23)
[2019-11-16] MEDS ORDERED: Meropenem 500 MG SDV ONE (08:23)
[2019-11-16] MEDS ORDERED: fentaNYL 250 MCG/5 ML SDV ONE ×2 (09:49→10:18)
[2019-11-16] MEDS ORDERED: Bupivacaine 0.5% 50 ML MDV ONE (09:49)
[2019-11-16] MEDS ORDERED: Lidocaine 1% with EPINEPHrine 1:100,000 50 ML MDV ONE (09:49)
[2019-11-16] MEDS ORDERED: Ondansetron 4 MG/2 ML SDV ONE (10:00)
[2019-11-16] MEDS ORDERED: Glycopyrrolate 0.2 MG/ML 5 ML MDV ONE (10:00)
[2019-11-16] MEDS ORDERED: Rocuronium 50 MG/5 ML Vial ONE (10:00)
[2019-11-16] MEDS ORDERED: Neostigmine Methylsulfate 1 MG/ML 5 ML Syringe ONE (10:00)
[2019-11-16] MEDS ORDERED: Dexamethasone 4 MG/ML SDV ONE (10:00)
[2019-11-16] MEDS ORDERED: Succinylcholine 200 MG/10 ML MDV ONE (10:00)
[2019-11-16] MEDS ORDERED: Propofol 200 MG/20 ML SDV ONE (10:00)
[2019-11-16] MEDS: cefOXitin 2 GM in Sodium Chloride 0.9% 50 ML IV ONE ×2 (10:26→12:40)
--- NOTE | 2019-11-16 11:23 | PN ---
DATE OF SERVICE: 11/16/2019 SUBJECTIVE: Chantelle is n.p.o. She will be having surgery. Case to follow this afternoon. Chantelle presented to the emergency room with abdominal pain that was progressing, which started about [address] scan impression was concerning for a small bowel obstruction involving the Raul limb secondary to internal hernia. There was no evidence of bowel ischemia or perforation. She states that her pain is controlled with the PHOTOENGRAVING HELPER, n.p.o. after midnight. She has no other concerns or questions. OBJECTIVE: GENERAL: Chantelle is a pleasant 34-year-old female. VITAL SIGNS: TPR is 98.5, 73, 16, and blood pressure 104/64. HEENT: Negative. NECK: Supple. HEART: Regular rate and rhythm. LUNGS: Clear. ABDOMEN: Tender in the left upper and mid quadrant, and periumbilical area. EXTREMITIES: Without peripheral edema. ASSESSMENT: Partial small bowel obstruction. PLAN: Schedule and have consent signed for exploratory laparotomy for release of partial small bowel obstruction, possible lysis of adhesion and possible small bowel resection. General anesthesia, TAP block, ketamine bolus and infusion. Magnesium loading dose and drip. Cefoxitin 2 g IV on-call to OR. Approximate time of surgery, 12 noon; n.p.o. Surgeon, Sammy Brown MD. Check ferritin, magnesium and phos on blood, that has already been ordered; and potassium acetate 40 mEq IV. Verbal order given to nursing staff to put that in right away. We will evaluate p.r.n. or in a.m. Jonna Wesley PA-C /[id number]
[2019-11-16] MEDS: Potassium Acetate 20 MEQ, Lidocaine 1% 2 ML in Sodium Chloride 0.9% 100 ML IV SCH ×2 (11:59→14:24)
[2019-11-16] MEDS ORDERED: Ketamine 50 MG in Sodium Chloride 0.9% 49.5 ML IV SCH (12:00)
[2019-11-16] MEDS ORDERED: Magnesium Sulfate 2.6 GM in Sodium Chloride 0.9% 100 ML IV SCH (12:00)
[2019-11-16] MEDS ORDERED: Calcium Gluconate 10% 1 GM/10 ML SDV IVPUSH PRN (12:37)
[2019-11-16] MEDS ORDERED: Acetaminophen 500 MG Tab PO PRN (12:37)
[2019-11-16] MEDS ORDERED: Metoclopramide 10 MG/2 ML SDV IVPUSH PRN (12:37)
[2019-11-16] MEDS ORDERED: hydrOXYzine HCL 100 MG/2 ML SDV IM PRN (12:37)
[2019-11-16] MEDS ORDERED: diphenhydrAMINE 50 MG/ML SDV IVPUSH PRN (12:37)
[2019-11-16] MEDS ORDERED: Labetalol 20 MG/4 ML Syringe IVPUSH PRN (12:37)
[2019-11-16] MEDS ORDERED: Scopolamine 1.5 MG Transdermal Patch TOP SCH (14:00)
[2019-11-16] MEDS: Acetaminophen 500 MG Tab PO SCH ×4 (14:10→22:00)
[2019-11-16] MEDS: MVI, Adult with Vitamin K 10 ML, Thiamine 200 MG, Chromium/Copper/Mang/Selen/Zn 1 ML in... IV SCH ×4 (16:32)
[2019-11-16] MEDS: Pantoprazole 40 MG Vial IVPUSH SCH (16:42)
[2019-11-16] MEDS: Heparin Sodium 5,000 Units/ML Vial SUBCUT SCH (16:43)
[2019-11-16] MEDS: cefOXitin 2 GM in Sodium Chloride 0.9% 50 ML IV SCH ×2 (16:53→22:00)
[2019-11-17] MEDS: cefOXitin 2 GM in Sodium Chloride 0.9% 50 ML IV SCH (03:54)
[2019-11-17] MEDS: Heparin Sodium 5,000 Units/ML Vial SUBCUT SCH ×2 (03:55→16:32)
[2019-11-17] MEDS ORDERED: Iopamidol 612 MG/ML 50 ML SDV PO ONE (04:00)
--- NOTE | 2019-11-17 05:04 | CRLCR ---
Indication: Post bariatric surgery Technique: Two frontal images of the abdomen acquired immediately following ingestion of oral contrast agent and at 20 minutes delay. Comparison: CT abdomen pelvis with contrast 11/15/2019 Findings/Impression: On 0 minute image, contrast is seen within the gastric pouch and in the proximal Raul limb. On 20 minutes delay, there is transit of oral contrast into more distal bowel loops in the lower abdomen. No extraluminal contrast is demonstrated. There are no abnormal distended small-bowel loops. There is scattered air in the colon. Skin april overlie the abdomen. Dictated by Mario Lloyd MD @ Nov 17 2019 4:58AM Signed by Dr. Mario Lloyd @ Nov 17 2019 5:02AM
[2019-11-17] MEDS: Dextrose 5%-Lactated Ringers 1,000 ML IV SCH ×3 (06:22→12:46)
[2019-11-17] MEDS: Acetaminophen 500 MG Tab PO SCH ×3 (06:44→21:09)
[2019-11-17] MEDS: SCOPOLAMINE PATCH CHECK TOP SCH (08:55)
[2019-11-17] MEDS: Celecoxib 200 MG Cap PO SCH ×2 (08:56→21:18)
[2019-11-17] MEDS: Ondansetron 4 MG/2 ML SDV IVPUSH PRN (10:01)
[2019-11-17] MEDS: Pantoprazole 40 MG Vial IVPUSH SCH (16:32)
[2019-11-17] MEDS: MVI, Adult with Vitamin K 10 ML, Thiamine 200 MG, Chromium/Copper/Mang/Selen/Zn 1 ML in... IV SCH ×4 (16:32)
[2019-11-17] MEDS: oxyCODONE 5 MG Tab PO PRN (19:31)
[2019-11-18] MEDS: oxyCODONE 5 MG Tab PO PRN ×5 (02:17→20:17)
[2019-11-18] MEDS: Dextrose 5%-Lactated Ringers 1,000 ML IV SCH ×2 (02:18→12:23)
[2019-11-18] MEDS: Acetaminophen 500 MG Tab PO SCH ×3 (05:35→22:31)
[2019-11-18] MEDS: Heparin Sodium 5,000 Units/ML Vial SUBCUT SCH ×2 (05:35→17:37)
[2019-11-18] MEDS: Celecoxib 200 MG Cap PO SCH ×2 (08:37→20:18)
[2019-11-18] MEDS: SCOPOLAMINE PATCH CHECK TOP SCH (08:38)
[2019-11-18] MEDS: Bisacodyl 5 MG Tab PO SCH ×2 (08:38→20:18)
[2019-11-18] MEDS: Docusate Sodium 100 MG Cap PO SCH ×2 (08:38→20:18)
[2019-11-18] MEDS ORDERED: Cyanocobalamin (Vitamin B12) 1,000 MCG/ML SDV IM ONE (09:00)
[2019-11-18] MEDS: MVI, Adult with Vitamin K 10 ML, Thiamine 200 MG, Chromium/Copper/Mang/Selen/Zn 1 ML in... IV SCH ×4 (15:30)
[2019-11-18] MEDS: Pantoprazole 40 MG Vial IVPUSH SCH (15:30)
[2019-11-18] MEDS: Cyclobenzaprine 10 MG Tab PO PRN (20:17)
[2019-11-19] MEDS: Dextrose 5%-Lactated Ringers 1,000 ML IV SCH (01:13)
[2019-11-19] MEDS: oxyCODONE 5 MG Tab PO PRN (04:30)
[2019-11-19] MEDS: Heparin Sodium 5,000 Units/ML Vial SUBCUT SCH (04:34)
[2019-11-19] MEDS: Acetaminophen 500 MG Tab PO SCH (06:20)
[2019-11-19 08:34] VITALS: BP 111/68; PULSE 64
[2019-11-19] MEDS: Docusate Sodium 100 MG Cap PO SCH (08:40)
[2019-11-19] MEDS: Bisacodyl 5 MG Tab PO SCH (08:40)
[2019-11-19] MEDS: Celecoxib 200 MG Cap PO SCH (08:40)
[2019-11-19] MEDS: Cyclobenzaprine 10 MG Tab PO PRN (08:44)
--- NOTE | 2019-11-19 08:45 | DISCH ---
ADMISSION DIAGNOSES: Partial small bowel obstruction, status post Raul-en-Y gastric bypass surgery, unspecified surgical malabsorption, B12 deficiency, history of kidney stones, maladaptive health behaviors affecting medical condition. DISCHARGE DIAGNOSES: Exploratory laparotomy with: 1. Reduction of small bowel volvulus and closure of internal hernia. 2. Revision of the jejunojejunostomy component of the Raul-en-Y gastric bypass. 3. Tubular decompression of the Raul limb. 4. Placement of Interceed mesh for partial small bowel obstruction secondary to volvulus and extension of the Raul limb entering the jejunojejunostomy and marked distention of the Raul limb. Date of surgery: 11/16/2019 (revision of Raul-en-Y gastric bypass surgery). HISTORY: Chantelle Bennett is a pleasant 34-year-old female, presented to the emergency room with abdominal pain. After preoperative evaluation and discussion of possible risks and possible complications, she wished to proceed with surgical procedure. HOSPITAL COURSE: Chantelle had her surgery on 11/16/2019. She had no operative complications. On postoperative day #1, she was started on a step 3 gastric bypass diet. Her IV was decreased to 100 mL per hour. On postoperative day #2, she was given bowel stimulation, and she did have a bowel movement. On postoperative day #3, vital signs were stable. Activity was good. Oral intake adequate. Pain controlled. Chantelle was able to be discharged to home. PHYSICAL EXAMINATION: GENERAL: Chantelle Bennett is a 34-year-old female. VITAL SIGNS: Height is 5 feet 8.9 inches, weight is 187 pounds. TPR at 0300, 98.6; 65; 16; blood pressure 110/60. HEENT: Negative. NECK: Supple. HEART: Regular rate and rhythm. LUNGS: Clear. ABDOMEN: Soft. Minimally tender. Aquacel dressing is on. Stapled incision. Abdominal binder has been on. EXTREMITIES: Without peripheral edema. DISPOSITION: Discharged to home. CONDITION: Stable and improving. FOLLOWUP: Appointment with Jonna Wesley PA-C, on 11/27/2019 at 9:00 a.m. NEW PRESCRIPTIONS: 1. Tylenol 1000 mg oral every 8 hours p.r.n. pain. 2. Celebrex 200 mg b.i.d. #28. 3. Flexeril 10 mg q.8 hours p.r.n. muscle spasms, #30. 4. Oxycodone 5 mg 1 every 6 hours p.r.n. pain #28. 5. To resume home medication of: 6. Vitamin D3 1 daily. 7. Vitamin B12 1000 mcg sublingual daily. 8. Nystatin 1 application topical twice daily. 9. Probiotic 1 capsule oral twice daily. 10.Omeprazole 40 mg oral daily. 11.Imitrex 50 mg oral as directed p.r.n. migraine headaches. 12.B complex 1 daily. DIET: Step 3 gastric bypass diet. Drink 8 to 10 glasses of water a day. ACTIVITY: No lifting greater than 10 pounds for 6 weeks. Other activity: Walk at least 6 times daily inside your home. Driving: Do not drive for 1 week and while on pain medication. Shower/bathing: May shower. DISCHARGE INSTRUCTIONS: 1. Notify provider if any fever, increased pain, swelling, redness, drainage, nausea, vomiting. Keep site clean and dry. Wear abdominal binder for 6 weeks and then as tolerated. 2. Take off Aquacel dressing on , 11/22/2019. 3. To use incentive spirometer 10 times every hour while awake for 1 week.
--- NOTE | 2019-11-19 11:42 | PN ---
DATE OF SERVICE: 11/18/2019 The patient has been afebrile with stable vital signs. Overnight, we switched her over to oral pain medication with oxycodone. It seemed to hold her a little bit better. We will continue the oral Tylenol and Celebrex as well, and otherwise, begin some bowel stimulation today. She will probably be ready for discharge home tomorrow. Sammy Brown MD /[id number]
--- NOTE | 2019-11-19 12:54 | PN ---
DATE OF SERVICE: 11/17/2019 The patient has been afebrile with stable vital signs. Pain control appears to be adequate, but we will probably need to leave the BUTTON TUFTER going for at least another 24 hours. Otherwise, urine output has been satisfactory. She is taking in some liquids, but is still little bit nauseated. We will go up to a step-3 diet today, but she is instructed that if she wants to otherwise take liquids, that is fine available on the step-3 diet sheet. Otherwise, we will back down the IV rate, maximize activity, and work with pulmonary toilet. Sammy Brown MD /[id number]
--- NOTE | 2019-11-26 14:06 | OR ---
DATE OF PROCEDURE: 11/16/2019 SURGEON: Sammy Brown MD PREOPERATIVE DIAGNOSIS: Partial small bowel obstruction. POSTOPERATIVE DIAGNOSIS: 1. Partial small bowel obstruction secondary to volvulus and stricture at point of Raul limb entering the jejunojejunostomy. 2. Marked distention of Raul limb. OPERATIVE PROCEDURES: Exploratory laparotomy with, 1. Reduction of small bowel volvulus and closure of internal hernia (65127). 2. Revision of jejunojejunostomy component of Raul-en-Y gastric bypass (82453). 3. Tube decompression of distended Raul limb, small bowel, (88985). 4. Placement of Interceed mesh to limit adhesion formation between pelvic and abdominal naidu and underlying viscera (92326). ANESTHESIA: General. SALES REPRESENTATIVE SALES MANAGER: Jonna Wesley PA-C INDICATIONS FOR PROCEDURE: The patient presents with a picture of small bowel obstruction status post previous Raul-en-Y gastric bypass. The plan is to proceed with a limited exploratory laparotomy with lysis of adhesions and/or bowel resection as indicated. Potential risks including bleeding, infection, leaks from GI tract closures, problems with recurrence of the bowel obstruction over time were all reviewed, and the patient wishes to proceed. DETAILS OF PROCEDURE: The patient was taken to the operating room and after general endotracheal anesthesia was induced, a Mar catheter was inserted, and the abdomen was prepped and draped. An incision in the midline, roughly a handsbreadth from the umbilicus toward the xiphoid was made and carried down through the full-thickness abdominal wall. Upon entering the peritoneal cavity, general exploration was undertaken. Two sites of pathology accounting for the partial obstruction were encountered; one was limited volvulus between a portion of the Raul limb distally, between the leaves of the enterostomy was identified, and this was reduced. The patient, at that point, was noted to have marked stricturing of the point where the Raul limb entered the jejunojejunostomy, likely related to chronic volvulus and resulting scarring in that area. There was marked distention of the Raul limb proximal to that point. At this point, the small bowel anastomosis was then resected with 3 components being divided with DANIELLA april and underlying mesentery divided with DANIELLA april as well. This occurred after reduction of the small bowel volvulus. An enterotomy was then placed in the divided Raul limb and a tube placed, thus removing the fluid and causing that area to be distended. GI tract continuity was initially established with a [id number] enteroenterostomy between what had been the distal-most biliopancreatic limb and the proximal most common limb with a [id number] enteroenterostomy with 60 mm DANIELLA stapler. Common opening was then closed transversely with the same stapler and the angles anastomosis were reinforced with some 3-0 Vicryl stitch, and the mesenteric defect then closed with 2-0 silk stitch. GI tract continuity was then established with the Raul limb being anastomosed roughly 20 cm to the previous anastomosis with the same sequence of april. The mesenteric defect was then closed with a 2-0 silk stitch in this case, thus closing off any potential for internal hernia at that location. The abdomen was then irrigated with antibiotic-containing saline solution. To limit adhesion formation between pelvic and abdominal naidu and underlying viscera, Interceed mesh was placed underneath the incision and from there down toward the pelvis. Midline fascia was then approximated with a #2 Vicryl stitch, subcutaneous tissue with 2 layers of 3-0 and 4-0 Vicryl stitch deep, and skin with april. The patient was taken to the recovery room in satisfactory condition. The patient received intraoperative bilateral transversus abdominis plane blocks as well as local anesthetic injected into the incision. Physician optical assistant, Jonna Wesley, played an essential role in assisting in this case, helping to position the patient, retract structures as needed, as well as suturing and cutting sutures when indicated. Her presence improved patient safety and decreased the operative time. Sammy Brown MD /[id number]
== END 2019-11-19 10:45 | disposition home or self-care (01) | DRG 330 ==
LOC: JP.ED 21:38 → JP.MS 23:52
PROVIDERS: ADMIT Surgery; ATTEND Physician Assistant Medical
PROC: 0DQV0ZZ Repair Mesentery, Open Approach (ICD-10-PCS; principal; 2019-11-16)
PROC: 0D1A0ZA Bypass Jejunum to Jejunum, Open Approach (ICD-10-PCS; 2019-11-16)
PROC: 0DS80ZZ Reposition Small Intestine, Open Approach (ICD-10-PCS; 2019-11-16)
PROC: 3E0M05Z Introduction of Adhesion Barrier into Peritoneal Cavity, Open Approach (ICD-10-PCS; 2019-11-16)
PROC: 0D9880Z Drainage of Small Intestine with Drainage Device, Via Natural or Artificial Opening Endoscopic (ICD-10-PCS; 2019-11-16)
DX: K56.609 Unspecified intestinal obstruction, unspecified as to partial versus complete obstruction (principal); K46.0 Unspecified abdominal hernia with obstruction, without gangrene; K58.9 Irritable bowel syndrome, unspecified; N20.0 Calculus of kidney; Z87.442 Personal history of urinary calculi; K56.600 Partial intestinal obstruction, unspecified as to cause; K91.2 Postsurgical malabsorption, not elsewhere classified; G43.909 Migraine, unspecified, not intractable, without status migrainosus; E61.1 Iron deficiency; F41.9 Anxiety disorder, unspecified; F32.9 Major depressive disorder, single episode, unspecified; K46.9 Unspecified abdominal hernia without obstruction or gangrene; E53.8 Deficiency of other specified B group vitamins; E66.9 Obesity, unspecified; K56.2 Volvulus; Z68.27 Body mass index [BMI] 27.0-27.9, adult; Z90.49 Acquired absence of other specified parts of digestive tract; Z98.890 Other specified postprocedural states; Z98.84 Bariatric surgery status; Z79.899 Other long term (current) drug therapy
CPT/HCPCS: 36415; 74177; 80048; 83690; 85027; 96374; 96375; 96376; 99284; 99285; J1170 ×2; J2405; J3480; J7050; Q9967; 74240; 80053; 81001; 82728; 83735; 84100; 85025; 88307; 94762; A9270-GY; C9113; J0171; J0330; J0694; J1100; J1644; J2001; J2185; J2704; J2710; J2795; J3010; J3411; J3420; J3475; J3490; J7121

== ENCOUNTER 2022-04-14 13:34 | Emergency (ER) | payer MEDICAID, MEDICARE ==
[2022-04-14 13:50] VITALS: BP 125/59; PULSE 67
[2022-04-14] MEDS ORDERED: Sodium Chloride 0.9% 10 ML Syringe FLUSH PRN (14:14)
[2022-04-14] MEDS ORDERED: Ketorolac 30 MG/ML SDV IVPUSH ONE (14:14)
[2022-04-14] MEDS ORDERED: Lactated Ringers 1,000 ML IV ONE ×2 (14:21→15:55)
== END 2022-04-14 17:01 | disposition home or self-care (01) ==
LOC: JP.ED 13:34
DX: N20.0 Calculus of kidney (principal); E66.9 Obesity, unspecified; Z68.28 Body mass index [BMI] 28.0-28.9, adult; Z79.899 Other long term (current) drug therapy
CPT/HCPCS: 76705; 81001; 87086; 96361; 96374; 99284; J1885; J3490; J7120; 99282

== ENCOUNTER 2023-05-10 04:27 | Emergency (ER) | payer MEDICAID ==
[2023-05-10 05:26] LABS: BASOPHILS ABSOLUTE AUTO 0.05 K/uL (0.00-0.10); BASOPHILS PERCENT AUTO 0.7 % (0.1-1.3); EOSINOPHILS ABSOLUTE AUTO 0.26 K/uL (0.00-0.40); EOSINOPHILS PERCENT AUTO 3.9 % (0.0-5.4); HEMATOCRIT 35.6 % (34.3-46.0); HEMOGLOBIN 11.8 g/dL (11.2-15.5); IMMATURE GRAN ABSOLUTE AUTO 0.03 K/uL (0.00-0.23); IMMATURE GRAN PERCENT AUTO 0.4 % (0.0-0.7); LYMPHOCYTES ABSOLUTE AUTO 1.19 K/uL (0.8-3.3); LYMPHOCYTES PERCENT AUTO 17.7 % (11.4-47.7); MEAN CORPUSCULAR HEMOGLOBIN 31.1 pg (31.6-35.5); MEAN CORPUSCULAR HGB CONC 33.1 g/dL (31.6-35.5); MEAN CORPUSCULAR VOLUME 93.9 fL (81.4-99.0); MONOCYTES ABSOLUTE AUTO 0.37 K/uL (0.20-0.90); MONOCYTES PERCENT AUTO 5.5 % (3.3-12.6); NEUTROPHILS ABSOLUTE AUTO 4.83 K/uL (1.0-7.6); NEUTROPHILS PERCENT AUTO 71.8 % (40.0-78.1); PLATELET COUNT,PLT 239 K/uL (130-375); RED BLOOD CELL COUNT 3.79 M/uL (3.77-5.24); WHITE BLOOD CELL COUNT,WBC 6.7 K/uL (3.2-11.0)
[2023-05-10 05:49] LABS: CALCIUM 8.3 mg/dL (8.5-10.1); CREATININE 0.6 mg/dL (0.6-1.0); EST CRCL DRUG DOSING (CG) 115.52 mL/min; POTASSIUM,K 3.5 mmol/L (3.6-5.2); TROPONIN I HIGH SENSITIVITY 4.6 pg/mL (<=60.3)
[2023-05-10 05:51] LABS: ANION GAP 12.5 mmol/L (5.0-14.0)
[2023-05-10] MEDS ORDERED: Ketorolac 15 MG/ML SDV IVPUSH ONE (06:55)
[2023-05-10 07:02] VITALS: BP 104/65; PULSE 78
[2023-05-10 07:03] LABS: APPEARANCE,URINE CLEAR (CLEAR); BILIRUBIN,URINE NEGATIVE (NEGATIVE); COLOR,URINE YELLOW (YELLOW); GLUCOSE,URINE NEGATIVE (NEGATIVE); KETONES,URINE NEGATIVE (NEGATIVE); LEUKOCYTE ESTERASE,URINE NEGATIVE (NEGATIVE); NITRITE,URINE NEGATIVE (NEGATIVE); OCCULT BLOOD,URINE NEGATIVE (NEGATIVE); PH,URINE 6.5 (5.0-8.0); PROTEIN,URINE NEGATIVE (NEGATIVE); UROBILINOGEN,URINE 0.2 EU/dL (0.2-1.0)
[2023-05-10 07:12] LABS: AMORPHOUS SEDIMENT,URINE NOT SEEN; BACTERIA,URINE NOT SEEN; EPITHELIAL CELLS,URINE FEW; MUCUS,URINE NOT SEEN; RBC,URINE NOT SEEN (0-5); WBC,URINE 0-5 (0-5)
== END 2023-05-10 07:53 | disposition home or self-care (01) ==
LOC: JP.ED 04:27
DX: F41.9 Anxiety disorder, unspecified (principal); E66.9 Obesity, unspecified; Z68.26 Body mass index [BMI] 26.0-26.9, adult; Z79.899 Other long term (current) drug therapy; Z88.8 Allergy status to other drugs, medicaments and biological substances
CPT/HCPCS: 36415; 71046; 80048; 81001; 84484; 85025; 85379; 93005; 96374; 99285; J1885

== ENCOUNTER 2024-05-13 11:43 | Emergency (ER) | payer MEDICAID ==
[2024-05-13 12:26] VITALS: BP 108/71; PULSE 77
[2024-05-13 12:56] LABS: APPEARANCE,URINE CLEAR (CLEAR); BILIRUBIN,URINE NEGATIVE (NEGATIVE); COLOR,URINE YELLOW (YELLOW); GLUCOSE,URINE NEGATIVE (NEGATIVE); KETONES,URINE NEGATIVE (NEGATIVE); LEUKOCYTE ESTERASE,URINE NEGATIVE (NEGATIVE); NITRITE,URINE NEGATIVE (NEGATIVE); OCCULT BLOOD,URINE NEGATIVE (NEGATIVE); PROTEIN,URINE NEGATIVE (NEGATIVE)
[2024-05-13 13:06] LABS: AMORPHOUS SEDIMENT,URINE NOT SEEN; BACTERIA,URINE NOT SEEN; EPITHELIAL CELLS,URINE RARE; MUCUS,URINE NOT SEEN; RBC,URINE 0-5 (0-5); WBC,URINE NOT SEEN (0-5)
[2024-05-13 13:23] LABS: BASOPHILS ABSOLUTE AUTO 0.08 K/uL (0.00-0.10); BASOPHILS PERCENT AUTO 1.4 % (0.1-1.3); EOSINOPHILS ABSOLUTE AUTO 0.44 K/uL (0.00-0.40); EOSINOPHILS PERCENT AUTO 7.9 % (0.0-5.4); HEMATOCRIT 31.8 % (34.3-46.0); HEMOGLOBIN 10.8 g/dL (11.2-15.5); IMMATURE GRAN PERCENT AUTO 0.2 % (0.0-0.7); LYMPHOCYTES ABSOLUTE AUTO 0.99 K/uL (0.8-3.3); LYMPHOCYTES PERCENT AUTO 17.8 % (11.4-47.7); MEAN CORPUSCULAR HEMOGLOBIN 32.9 pg (31.6-35.5); MONOCYTES ABSOLUTE AUTO 0.34 K/uL (0.20-0.90); MONOCYTES PERCENT AUTO 6.1 % (3.3-12.6); NEUTROPHILS ABSOLUTE AUTO 3.69 K/uL (1.0-7.6); NEUTROPHILS PERCENT AUTO 66.6 % (40.0-78.1); PLATELET COUNT,PLT 182 K/uL (130-375); RED BLOOD CELL COUNT 3.28 M/uL (3.77-5.24); WHITE BLOOD CELL COUNT,WBC 5.6 K/uL (3.2-11.0)
[2024-05-13 13:26] LABS: IMMATURE GRAN ABSOLUTE AUTO 0.01 K/uL (0.00-0.23)
[2024-05-13 13:33] LABS: CALCIUM 7.7 mg/dL (8.5-10.1); CREATININE 0.6 mg/dL (0.6-1.0); EST CRCL DRUG DOSING (CG) 114.4 mL/min; POTASSIUM,K 3.6 mmol/L (3.6-5.2)
[2024-05-13 13:44] LABS: ANION GAP 14.6 mmol/L (5.0-14.0)
[2024-05-13 14:35] LABS: LYME AB IgG Negative (Negative); LYME AB IgM Equivocal (Negative)
[2024-05-16 13:00] LABS: B. BURGDORFERI IGG IMMUNOBLOT Negative (Negative); B. BURGDORFERI IGM IMMUNOBLOT Negative (Negative)
== END 2024-05-13 15:37 | disposition home or self-care (01) ==
LOC: JP.ED 11:43
DX: M79.10 Myalgia, unspecified site (principal); R10.823 Right lower quadrant rebound abdominal tenderness; E66.9 Obesity, unspecified; Z68.23 Body mass index [BMI] 23.0-23.9, adult; Z90.49 Acquired absence of other specified parts of digestive tract; Z87.891 Personal history of nicotine dependence; Z79.899 Other long term (current) drug therapy; Z88.8 Allergy status to other drugs, medicaments and biological substances
CPT/HCPCS: 36415; 80048; 81001; 84145; 85025; 86617; 86618; 99283

== ENCOUNTER 2024-10-15 14:52 | Inpatient (IN) | payer MEDICAID ==
[2024-10-15 16:33] LABS: APPEARANCE,URINE SLIGHTLY CLOUDY (CLEAR); BILIRUBIN,URINE NEGATIVE (NEGATIVE); COLOR,URINE YELLOW (YELLOW); GLUCOSE,URINE NEGATIVE (NEGATIVE); KETONES,URINE NEGATIVE (NEGATIVE); LEUKOCYTE ESTERASE,URINE SMALL (NEGATIVE); NITRITE,URINE POSITIVE (NEGATIVE); OCCULT BLOOD,URINE SMALL (NEGATIVE); PROTEIN,URINE 30 mg/dL (NEGATIVE); UROBILINOGEN,URINE 0.2 EU/dL (0.2-1.0)
[2024-10-15 16:35] LABS: AMORPHOUS SEDIMENT,URINE NOT SEEN; BACTERIA,URINE MODERATE; EPITHELIAL CELLS,URINE RARE; MUCUS,URINE RARE; WBC,URINE PACKED (0-5)
[2024-10-15 16:51] LABS: BASOPHILS ABSOLUTE AUTO 0.03 K/uL (0.00-0.10); BASOPHILS PERCENT AUTO 0.4 % (0.1-1.3); EOSINOPHILS ABSOLUTE AUTO 0.04 K/uL (0.00-0.40); EOSINOPHILS PERCENT AUTO 0.5 % (0.0-5.4); HEMATOCRIT 37.3 % (34.3-46.0); HEMOGLOBIN 12.6 g/dL (11.2-15.5); IMMATURE GRAN PERCENT AUTO 0.3 % (0.0-0.7); LYMPHOCYTES ABSOLUTE AUTO 0.57 K/uL (0.8-3.3); LYMPHOCYTES PERCENT AUTO 7.4 % (11.4-47.7); MEAN CORPUSCULAR HEMOGLOBIN 30.7 pg (31.6-35.5); MEAN CORPUSCULAR HGB CONC 33.8 g/dL (31.6-35.5); MONOCYTES ABSOLUTE AUTO 0.36 K/uL (0.20-0.90); MONOCYTES PERCENT AUTO 4.7 % (3.3-12.6); NEUTROPHILS ABSOLUTE AUTO 6.65 K/uL (1.0-7.6); NEUTROPHILS PERCENT AUTO 86.7 % (40.0-78.1); PLATELET COUNT,PLT 176 K/uL (130-375); WHITE BLOOD CELL COUNT,WBC 7.7 K/uL (3.2-11.0)
[2024-10-15 17:05] LABS: IMMATURE GRAN ABSOLUTE AUTO 0.02 K/uL (0.00-0.23)
[2024-10-15] MEDS: Sodium Chloride 0.9% 1,000 ML IV SCH ×3 (17:13→21:16)
[2024-10-15] MEDS: Ondansetron 4 MG/2 ML SDV IVPUSH ONE (17:15)
[2024-10-15] MEDS: Ketorolac 30 MG/ML SDV IVPUSH ONE (17:18)
[2024-10-15 17:19] LABS: A/G RATIO 1.1 (1.2-2.2); ALANINE AMINOTRANSFERASE,ALT 42 U/L (12-78); ALBUMIN 3.5 g/dL (3.4-5.0); ALKALINE PHOSPHATASE 146 U/L (46-116); ANION GAP 9.9 mmol/L (5.0-14.0); ASPARTATE AMNIOTRANSFERASE,AST 23 U/L (15-37); BLOOD UREA NITROGEN,BUN 11 mg/dL (7-18); C-REACTIVE PROTEIN 7.82 mg/dL (<0.50); CALCIUM 8.4 mg/dL (8.5-10.1); CARBON DIOXIDE,CO2 26 mmol/L (21-32); CHLORIDE,CL 105 mmol/L (100-108); CREATININE 0.8 mg/dL (0.6-1.0); EST CRCL DRUG DOSING (CG) 87.53 mL/min; ESTIMATED GFR 97 mL/min (>60); GLUCOSE RANDOM 92 mg/dL (74-106); POTASSIUM,K 3.8 mmol/L (3.6-5.2); PROTEIN TOTAL,TP 6.7 g/dL (6.4-8.2); SODIUM,NA 141 mmol/L (140-148)
[2024-10-15] MEDS: cefTRIAXone 2 GM in Sodium Chloride 0.9% 50 ML IV ONE (17:38)
[2024-10-15] MEDS: Sodium Chloride 0.9% 1,000 ML IV ONE (20:46)
[2024-10-15] MEDS ORDERED: Naloxone 0.4 MG/ML SDV IVPUSH PRN (20:52)
[2024-10-15] MEDS ORDERED: LORazepam 2 MG/ML SDV IV PRN (20:52)
[2024-10-15] MEDS: Enoxaparin 40 MG/0.4 ML Syringe SUBCUT SCH (21:16)
[2024-10-15] MEDS: Acetaminophen 325 MG Tab PO PRN (21:16)
[2024-10-15] MEDS ORDERED: Oseltamivir 75 MG Cap PO SCH (21:45)
[2024-10-15] MEDS: Morphine 2 MG/ML SYRINGE IVPUSH PRN (22:29)
[2024-10-15 23:56] LABS: LACTIC ACID 0.7 mmol/L (0.4-2.0)
[2024-10-16 05:57] LABS: BASOPHILS ABSOLUTE AUTO 0.03 K/uL (0.00-0.10); BASOPHILS PERCENT AUTO 0.6 % (0.1-1.3); EOSINOPHILS ABSOLUTE AUTO 0.06 K/uL (0.00-0.40); EOSINOPHILS PERCENT AUTO 1.2 % (0.0-5.4); HEMATOCRIT 30.7 % (34.3-46.0); HEMOGLOBIN 10.3 g/dL (11.2-15.5); IMMATURE GRAN PERCENT AUTO 0.2 % (0.0-0.7); LYMPHOCYTES ABSOLUTE AUTO 0.62 K/uL (0.8-3.3); LYMPHOCYTES PERCENT AUTO 12.6 % (11.4-47.7); MEAN CORPUSCULAR HEMOGLOBIN 30.4 pg (31.6-35.5); MEAN CORPUSCULAR HGB CONC 33.6 g/dL (31.6-35.5); MEAN CORPUSCULAR VOLUME 90.6 fL (81.4-99.0); MONOCYTES ABSOLUTE AUTO 0.38 K/uL (0.20-0.90); MONOCYTES PERCENT AUTO 7.7 % (3.3-12.6); NEUTROPHILS ABSOLUTE AUTO 3.83 K/uL (1.0-7.6); NEUTROPHILS PERCENT AUTO 77.7 % (40.0-78.1); PLATELET COUNT,PLT 147 K/uL (130-375); RED BLOOD CELL COUNT 3.39 M/uL (3.77-5.24); WHITE BLOOD CELL COUNT,WBC 4.9 K/uL (3.2-11.0)
[2024-10-16 06:06] LABS: IMMATURE GRAN ABSOLUTE AUTO 0.01 K/uL (0.00-0.23)
[2024-10-16 06:11] LABS: CALCIUM 7.6 mg/dL (8.5-10.1); CREATININE 0.6 mg/dL (0.6-1.0); EST CRCL DRUG DOSING (CG) 114.4 mL/min; POTASSIUM,K 3.4 mmol/L (3.6-5.2)
[2024-10-16 06:23] LABS: ANION GAP 15.4 mmol/L (5.0-14.0)
[2024-10-16] MEDS: Potassium Chloride 20 MEQ Tab.ER PO ONE (10:28)
[2024-10-16] MEDS: cefTRIAXone 2 GM in Sodium Chloride 0.9% 50 ML IV SCH (17:43)
[2024-10-16] MEDS: Enoxaparin 40 MG/0.4 ML Syringe SUBCUT SCH (20:10)
[2024-10-17 06:01] LABS: HEMATOCRIT 30.7 % (34.3-46.0); HEMOGLOBIN 10.4 g/dL (11.2-15.5); MEAN CORPUSCULAR HEMOGLOBIN 30.4 pg (31.6-35.5); MEAN CORPUSCULAR HGB CONC 33.9 g/dL (31.6-35.5); MEAN CORPUSCULAR VOLUME 89.8 fL (81.4-99.0); RED BLOOD CELL COUNT 3.42 M/uL (3.77-5.24); WHITE BLOOD CELL COUNT,WBC 2.9 K/uL (3.2-11.0)
[2024-10-17 06:20] LABS: CALCIUM 7.9 mg/dL (8.5-10.1); CREATININE 0.5 mg/dL (0.6-1.0); EST CRCL DRUG DOSING (CG) 137.28 mL/min; MAGNESIUM 1.9 mg/dL (1.8-2.4); POTASSIUM,K 3.7 mmol/L (3.6-5.2)
[2024-10-17 06:21] LABS: ANION GAP 10.7 mmol/L (5.0-14.0)
[2024-10-17] MEDS ORDERED: Sodium Chloride 0.9% 10 ML Syringe IV PRN (10:44)
[2024-10-17] MEDS: Ondansetron 4 MG Tab.DIS PO PRN (18:17)
[2024-10-17] MEDS: oxyCODONE 5 MG Tab PO PRN (18:18)
[2024-10-18 06:01] LABS: HEMATOCRIT 30.8 % (34.3-46.0); HEMOGLOBIN 10.4 g/dL (11.2-15.5); MEAN CORPUSCULAR HEMOGLOBIN 30.2 pg (31.6-35.5); MEAN CORPUSCULAR HGB CONC 33.8 g/dL (31.6-35.5); MEAN CORPUSCULAR VOLUME 89.5 fL (81.4-99.0); RED BLOOD CELL COUNT 3.44 M/uL (3.77-5.24); WHITE BLOOD CELL COUNT,WBC 2.8 K/uL (3.2-11.0)
[2024-10-19 06:00] LABS: HEMATOCRIT 31.4 % (34.3-46.0); HEMOGLOBIN 10.7 g/dL (11.2-15.5); MEAN CORPUSCULAR HEMOGLOBIN 30.3 pg (31.6-35.5); MEAN CORPUSCULAR HGB CONC 34.1 g/dL (31.6-35.5); RED BLOOD CELL COUNT 3.53 M/uL (3.77-5.24); WHITE BLOOD CELL COUNT,WBC 3.7 K/uL (3.2-11.0)
[2024-10-19 11:46] VITALS: BP 104/60; PULSE 72
== END 2024-10-19 12:35 | disposition home or self-care (01) | DRG 872 ==
LOC: JP.ED 14:52 → JP.MS 19:55
PROVIDERS: ADMIT Hospitalist; ATTEND Hospitalist
DX: A41.51 Sepsis due to Escherichia coli [E. coli] (principal); N13.6 Pyonephrosis; H54.7 Unspecified visual loss; K58.9 Irritable bowel syndrome, unspecified; F41.9 Anxiety disorder, unspecified; F15.90 Other stimulant use, unspecified, uncomplicated; F32.A Depression, unspecified; Z98.84 Bariatric surgery status; Z88.8 Allergy status to other drugs, medicaments and biological substances; Z79.02 Long term (current) use of antithrombotics/antiplatelets; Z79.1 Long term (current) use of non-steroidal anti-inflammatories (NSAID); Z79.899 Other long term (current) drug therapy; Z90.49 Acquired absence of other specified parts of digestive tract; Z98.890 Other specified postprocedural states; Z87.891 Personal history of nicotine dependence
CPT/HCPCS: 36415; 74176; 80048; 80053; 81001; 83605; 83735; 85025; 85027; 86140; 87040; 87086; 87088; 87186; 99222; 99231; 99232; 99238; A9270-GY; J0696; J1650; J1885; J2270; J2405; J3490; J7030; Q0162

== ENCOUNTER 2025-02-14 06:35 | Day surgery (SDC) | payer MEDICAID, OTHER ==
[2025-02-14] MEDS ORDERED: Sodium Chloride 0.9% 1,000 ML IV SCH (07:00)
[2025-02-14] MEDS: Lactated Ringers 1,000 ML IV SCH (07:10)
[2025-02-14] MEDS ORDERED: fentaNYL 100 MCG/2 ML SDV ONE (07:30)
[2025-02-14] MEDS ORDERED: Midazolam 1 MG/ML 2 ML SDV ONE (07:30)
[2025-02-14] MEDS ORDERED: Propofol 200 MG/20 ML SDV ONE ×2 (07:30→07:46)
[2025-02-14] MEDS: Bupivacaine 0.5% 50 ML MDV ONE (08:26)
[2025-02-14] MEDS: Lidocaine 1% with EPINEPHrine 1:100,000 50 ML MDV ONE (08:27)
[2025-02-14 09:35] VITALS: BP 101/63; PULSE 58
== END 2025-02-14 09:38 | disposition home or self-care (01) ==
LOC: JP.SDS 06:35
PROVIDERS: ATTEND Surgery
DX: E86.0 Dehydration (principal); R19.7 Diarrhea, unspecified; J45.909 Unspecified asthma, uncomplicated
CPT/HCPCS: 36561; 71045; 76000; 81025; C1788; C1894; J0665; J1642; J2250; J2704; J3010; J7120

== ENCOUNTER 2025-06-29 17:10 | Emergency (ER) | payer OTHER ==
[2025-06-29 17:50] VITALS: BP 123/78; PULSE 79
[2025-06-29 18:18] LABS: APPEARANCE,URINE CLEAR (CLEAR); GLUCOSE,URINE NEGATIVE (NEGATIVE); OCCULT BLOOD,URINE NEGATIVE (NEGATIVE)
[2025-06-29 18:22] LABS: AMPHETAMINES SCREEN, URINE NEGATIVE (NEGATIVE); METHADONE SCREEN, URINE NEGATIVE (NEGATIVE); METHAMPHETAMINES SCREEN, URINE NEGATIVE (NEGATIVE); OXYCODONE SCREEN,URINE NEGATIVE (NEGATIVE); PROPOXYPHENE SCREEN,URINE NEGATIVE (NEGATIVE); THC SCREEN,URINE 50 NG/ML NEGATIVE (NEGATIVE)
[2025-06-29 18:35] LABS: BASOPHILS ABSOLUTE AUTO 0.03 K/uL (0.00-0.10); BASOPHILS PERCENT AUTO 0.9 % (0.1-1.3); EOSINOPHILS PERCENT AUTO 0.6 % (0.0-5.4); IMMATURE GRAN PERCENT AUTO 0.0 % (0.0-0.7); LYMPHOCYTES ABSOLUTE AUTO 0.88 K/uL (0.8-3.3); LYMPHOCYTES PERCENT AUTO 26.7 % (11.4-47.7); MONOCYTES ABSOLUTE AUTO 0.21 K/uL (0.20-0.90); MONOCYTES PERCENT AUTO 6.4 % (3.3-12.6); NEUTROPHILS ABSOLUTE AUTO 2.15 K/uL (1.0-7.6); NEUTROPHILS PERCENT AUTO 65.4 % (40.0-78.1); PLATELET COUNT,PLT 188 K/uL (130-375); RED BLOOD CELL COUNT 3.07 M/uL (3.77-5.24); WHITE BLOOD CELL COUNT,WBC 3.3 K/uL (3.2-11.0)
[2025-06-29 18:37] LABS: EOSINOPHILS ABSOLUTE AUTO 0.02 K/uL (0.00-0.40)
[2025-06-29 18:38] LABS: IMMATURE GRAN ABSOLUTE AUTO 0.00 K/uL (0.00-0.23)
[2025-06-29 18:53] LABS: BLOOD UREA NITROGEN,BUN 13.0 mg/dL (7-18); CARBON DIOXIDE,CO2 26.0 mmol/L (21-32); CHLORIDE,CL 110.0 mmol/L (100-108); CREATININE 0.6 mg/dL (0.6-1.0); EST CRCL DRUG DOSING (CG) 113.27 mL/min; ESTIMATED GFR 117.0 mL/min (>60); GLUCOSE RANDOM 100.0 mg/dL (74-106); POTASSIUM,K 4.1 mmol/L (3.6-5.2); SODIUM,NA 143.0 mmol/L (140-148)
[2025-06-29] MEDS: Acetaminophen/HYDROcodone 325-5 MG Tab PO ONE (19:21)
== END 2025-06-29 19:25 | disposition home or self-care (01) ==
LOC: JP.ED 17:10
DX: Q61.5 Medullary cystic kidney (principal); E66.9 Obesity, unspecified; Z86.16 Personal history of COVID-19; Z98.84 Bariatric surgery status; Z90.49 Acquired absence of other specified parts of digestive tract; Z87.891 Personal history of nicotine dependence; Z91.048 Other nonmedicinal substance allergy status; Z79.899 Other long term (current) drug therapy; Z68.22 Body mass index [BMI] 22.0-22.9, adult
CPT/HCPCS: 36415; 80048; 80305; 81003; 85025; 99284; A9270

== ENCOUNTER 2025-07-31 09:41 | Day surgery (SDC) | payer OTHER ==
[~2025-07-31 09:41] MED LIST: Midazolam 1 MG/ML 2 ML SDV ONE; Propofol 200 MG/20 ML SDV ONE; fentaNYL 50 MCG/ML SDV ONE
[2025-07-31] MEDS: Lactated Ringers 1,000 ML IV SCH (10:46)
[2025-07-31] MEDS: Sodium Chloride 0.9% 10 ML Syringe FLUSH ONE (13:14)
[2025-07-31 13:35] VITALS: BP 113/63; PULSE 72
== END 2025-07-31 13:20 | disposition home or self-care (01) ==
LOC: JP.SDS 09:41
PROVIDERS: ATTEND Surgery
DX: K91.89 Other postprocedural complications and disorders of digestive system (principal); R13.10 Dysphagia, unspecified; E66.9 Obesity, unspecified; Z98.0 Intestinal bypass and anastomosis status; Z88.8 Allergy status to other drugs, medicaments and biological substances; Z68.30 Body mass index [BMI] 30.0-30.9, adult; Z91.09 Other allergy status, other than to drugs and biological substances; Z79.899 Other long term (current) drug therapy
CPT/HCPCS: 00731; 43239; 43245; 81025; C1726; J2250; J2704; J3010; J7120